=== PATIENT | male | born 1980 | race Caucasian/White ===

== ENCOUNTER 2017-06-25 09:42 | Inpatient (IN) | payer BC ==
[2017-06-25 10:22] LABS: Basophils % (Auto) 0.6 % (0.0-1.8); Eosinophils % (Auto) 1.3 % (0.0-4.3); Hematocrit 41.3 % (35.5-45.6); Hemoglobin 13.7 gm/dl (11.8-15.2); Mean Corpuscular HGB Conc 33 % (32-34); Mean Corpuscular Hemoglobin 29 pg (28-32); Mean Corpuscular Volume 87 fl (84-94); Platelet Count 235 K/mm3 (140-440); Red Blood Count 4.77 M/mm3 (3.65-5.03); Red Cell Distribution Width 14.1 % (13.2-15.2)
[2017-06-25 10:32] LABS: INR 0.85 (0.87-1.13)
[2017-06-25 10:33] LABS: Partial Thromboplastin Time 26.5 Sec. (24.2-36.6)
[2017-06-25 10:43] LABS: Albumin 3.1 g/dL (3.9-5); Albumin/Globulin Ratio 0.8 %; Bilirubin,Total 0.2 mg/dL (0.1-1.2); Chloride 100.7 mmol/L (98-107); Potassium 3.6 mmol/L (3.6-5.0); Total Protein 6.8 g/dL (6.3-8.2)
--- NOTE | 2017-06-25 10:46 | XRay Report ---
ROUTINE CHEST, TWO VIEWS: HISTORY: chest pain. The trachea, heart, mediastinal contour, lung fuentes and bony thorax are unremarkable. IMPRESSION: Unremarkable chest x-ray.
[2017-06-25] MEDS ORDERED: NORMODYNE IV ONE (11:48)
[2017-06-25] MEDS ORDERED: APRESOLINE IV ONE (12:39)
[2017-06-25 12:51] LABS: Bilirubin,Urine NEG (Negative); Blood,Urine SM (Negative); Ketones,Urine NEG (Negative); Leukocyte Esterase,Urine NEG (Negative); Nitrite,Urine NEG (Negative); Urobilinogen,Urine < 2.0 mg/dL (<2.0)
[2017-06-25 12:56] LABS: Protein,Urine >500 mg/dL (Negative)
[2017-06-25] MEDS ORDERED: TRIDIL DRIP 50MG/250ML 50 MG/250 ML BOTTLE IV ONE (15:01)
[2017-06-25] MEDS ORDERED: NORCO 7.5/325 PO ONE (15:01)
--- NOTE | 2017-06-25 15:07 | Emergency Department Report ---
HPI - General Chief Complaint: High BP Time Seen by Provider: 06/25/17 11:48 - HPI HPI: The patient is a 37-year-old male with a history of uncontrolled hypertension and chronic kidney disease, who presents for evaluation of dyspnea. The patient reports 1 week of progressed dyspnea on exertion from baseline, severe when present, improved with rest, worsened with lying flat. He says that he has been noncompliant with antihypertensive medication regimen for some time. He denies history of cardiac disease, but has never been evaluated by cardiology. The patient denies fever, cough, chest pain, syncope, hemoptysis, unilateral leg swelling, recent immobilization, history of DVT or PE, hx cancer. ED Past Medical Hx - Past Medical History Hx Hypertension: Yes - Surgical History Past Surgical History?: No - Social History Smoking Status: Never Smoker Substance Use Type: Marijuana ED Review of Systems ROS: Stated complaint: LIGHTHEADED HYPERTENTION Other details as noted in HPI Constitutional: denies: fever ENT: denies: throat or neck pain Respiratory: denies: cough reports shortness of breath Cardiovascular: denies: chest pain Endocrine: denies unexplained weight loss or gain Gastrointestinal: denies: abdominal pain, nausea Genitourinary: denies: dysuria Musculoskeletal: denies: leg swelling Skin: denies: rash Neurological: denies: headache Hematological/Lymphatic: denies: easy bleeding or easy bruising Psych: denies sadness or hopelessness Physical Exam - Physical Exam Vital Signs: Vital Signs 06/25/17 06/25/17 06/25/17 09:53 12:00 12:12 Temperature 98.4 F Pulse Rate 95 H 90 Respiratory 18 16 16 Rate Blood Pressure 205/157 Blood Pressure 200/147 [Left] O2 Sat by Pulse 99 99 Oximetry 06/25/17 06/25/17 06/25/17 12:15 12:19 13:00 Temperature Pulse Rate 90 Respiratory Rate Blood Pressure 200/117 Blood Pressure 185/130 196/123 [Left] O2 Sat by Pulse Oximetry 06/25/17 06/25/17 06/25/17 13:07 13:33 14:22 Temperature Pulse Rate 78 74 94 H Respiratory 16 16 Rate Blood Pressure 198/139 Blood Pressure 176/116 188/127 [Left] O2 Sat by Pulse 99 97 Oximetry 06/25/17 14:45 Temperature Pulse Rate 82 Respiratory 16 Rate Blood Pressure Blood Pressure 188/119 [Left] O2 Sat by Pulse 99 Oximetry Physical Exam: General: well-nourished, well-developed, no acute distress Head: Normocephalic, atraumatic Eyes: normal sclera ENT: Mucous membranes are pink and moist Neck: trachea midline, neck supple, No neck stiffness, no cervical adenopathy Respiratory: Breath sounds equal bilaterally, no wheezing, rales, or rhonchi Cardio: S1 and S2 present, no murmurs, rubs, gallops, capillary refill is brisk Abdomen: Normoactive bowel sounds, soft abdomen, no rigidity, no guarding or rebound tenderness Musc: 1+ pitting edema of bilateral lower legs Skin: No rash Neuro: no facial drooping, normal speech Psych: Normal affect ED Course Vital Signs 06/25/17 06/25/17 06/25/17 09:53 12:00 12:12 Temperature 98.4 F Pulse Rate 95 H 90 Respiratory 18 16 16 Rate Blood Pressure 205/157 Blood Pressure 200/147 [Left] O2 Sat by Pulse 99 99 Oximetry 06/25/17 06/25/17 06/25/17 12:15 12:19 13:00 Temperature Pulse Rate 90 Respiratory Rate Blood Pressure 200/117 Blood Pressure 185/130 196/123 [Left] O2 Sat by Pulse Oximetry 06/25/17 06/25/17 06/25/17 13:07 13:33 14:22 Temperature Pulse Rate 78 74 94 H Respiratory 16 16 Rate Blood Pressure 198/139 Blood Pressure 176/116 188/127 [Left] O2 Sat by Pulse 99 97 Oximetry 06/25/17 14:45 Temperature Pulse Rate 82 Respiratory 16 Rate Blood Pressure Blood Pressure 188/119 [Left] O2 Sat by Pulse 99 Oximetry ED Medical Decision Making - Lab Data Result diagrams: 06/25/17 10:04 06/25/17 10:04 - Medical Decision Making The patient was seen and examined by myself. The patient is placed on a triage rn and continuous pulse ox. On initial evaluation, the patient was found to be in no distress. Evaluation orders were placed. The patient is given multiple doses of antihypertensives. Lab results revealed significantly elevated beta natruretic peptide of 3000, and elevated creatinine of 3, suggestive of undiagnosed congestive heart failure and acute on chronic kidney failure. The patient remains with severely elevated blood pressure despite multiple doses of IV antihypertensives. As the patient's blood pressure remains emergently elevated, DBP currently 130, the patient started on a nitroglycerin drip and he will be admitted to the critical-care unit. The on- call hospitalist service was contacted. Dr. Horta agreed to admit the patient for further treatment and close monitoring. The ED admit order was placed. The patient was admitted in guarded condition. Critical care attestation.: If time is entered above; I have spent that time in minutes in the direct care of this critically ill patient, excluding procedure time. ED Disposition Clinical Impression: Hypertensive emergency, Heart failure, acute systolic, Acute non intractable tension-type headache Renal failure (ARF), acute on chronic Qualifiers: Acute renal failure type: unspecified Chronic kidney disease stage: stage 2 ( mild) Qualified Code(s): N17.9 - Acute kidney failure, unspecified Disposition: OP ADMIT IP TO THIS HOSP Is pt being admited?: Yes Does the pt Need Aspirin: Yes Condition: Serious Instructions: Hypertension (ED) Referrals: PRIMARY CARE, [Primary Care Provider] - 3-5 Days Time of Disposition: 15:08
[2017-06-25] MEDS ORDERED: BABY ASPIRIN PO ONE (15:09)
[2017-06-25] MEDS: PERCOCET 5/325 PO PRN (21:40)
--- NOTE | 2017-06-25 22:13 | Consultation ---
History of Present Illness Consult date: 06/25/17 Requesting physician: ERIC CALDERON Reason for consult: other (Hypertensive Urgency) History of present illness: PULMONARY/CCM CONSULT NOTE (Full dictation # [id number]) Please see dictated notes for full details Medications and Allergies Allergies Allergy/AdvReac Type Severity Reaction Status Date / Time No Known Allergies Allergy Unverified 06/25/17 09:53 Home Medications Medication Instructions Recorded Confirmed Last Taken Type No Known Home Medications [No 06/25/17 06/25/17 Unknown History Reported Home Medications] Active Meds: Active Medications Nitroglycerin/Dextrose (Tridil Drip 50mg/250ml) 50 mg in 250 mls @ 3 mls/hr IV TITR ONE; 10 MCG/MIN PRN Reason: Protocol Stop: 06/29/17 02:20 Last Titration: 06/25/17 18:37 Dose: 70 mcg/min, 21 mls/hr Oxycodone/Acetaminophen (Percocet 5/325) 1 tab PO Q4H PRN PRN Reason: Pain, Moderate (4-6) Last Admin: 06/25/17 21:40 Dose: 1 tab Physical Examination Vital signs: Vital Signs Temp Pulse Resp BP Pulse Ox 98.4 F 95 H 18 205/157 99 06/25/17 09:53 06/25/17 09:53 06/25/17 09:53 06/25/17 09:53 06/25/17 09:53 Results - Laboratory Findings CBC and BMP: 06/25/17 10:04 06/25/17 10:04 PT/INR, D-dimer PT 12.0 Sec. (12.2-14.9) L 06/25/17 10:04 INR 0.85 (0.87-1.13) L 06/25/17 10:04 Abnormal lab findings: Abnormal Labs 06/25/17 06/25/17 06/25/17 10:04 10:04 10:04 Seg Neutrophils % 76.0 H PT 12.0 L INR 0.85 L Creatinine 3.4 H Glucose 101 H NT-Pro-B Natriuret Pep Albumin 3.1 L 06/25/17 10:04 Seg Neutrophils % PT INR Creatinine Glucose NT-Pro-B Natriuret Pep 3028 H Albumin
[2017-06-25] MEDS ORDERED: CARDENE 50 MG in NACL 0.9% 250ML 230 ML IV SCH (23:00)
[2017-06-25] MEDS: COREG PO SCH (23:00)
[2017-06-25] MEDS: NORVASC PO SCH (23:00)
--- NOTE | 2017-06-25 23:50 | Consultation ---
PULMONARY CRITICAL CARE CONSULT NOTE CONSULTING PHYSICIAN: Dr. Horta. REASON FOR CONSULTATION: Hypertensive urgency, need for IV nitro drip. CHIEF COMPLAINT AND HISTORY OF PRESENT ILLNESS: As follows. The patient is a 37-year-old -[place] male with past medical history according to him significant for high blood pressure, but also a cardiomyopathy. He states he has been on Lasix at home. He has been on Coreg at home, but he denies any history of coronary artery disease. He ran out of his medications recently, he came into the ER complaining of uncontrolled hypertension and dyspnea on exertion. He described a week of increasing dyspnea on exertion, but denied any significant orthopnea. He denied any cough or expectoration. He denied any chest pains or palpitations. He denied any nausea and vomiting. He apparently had told the Emergency Room earlier that he was having orthopnea, but denies that to me. He was seen in the ER and given multiple rounds of labetalol, IV hydralazine, and ultimately started on a nitro drip. When I stopped by to see him, he was lying in bed, the head of his bed was up even though he denied orthopnea. He did complain mostly of a pounding headache that he had gotten since he was started on nitro drip. He denied any new onset leg pain or swelling either unilaterally or bilaterally, any hemoptysis, any palpitations. Denied any suggestion of any venous thromboembolic phenomenon/DVT. He denies any history of tobacco use or abuse. This really is as much of the history of presentation as I have. I should mention no vomiting at home. He did have one episode of vomiting after he received ____ headache. PAST MEDICAL HISTORY: Hypertension, cardiomyopathy, chronic kidney disease. PAST SURGICAL HISTORY: Denies. MEDICATIONS: He was on at the time I stopped by to see him were revealed, he was on a nitro drip at 70 mcg per minute and Percocet 1 tab p.o. q. 4 hours p.r.n. moderate pain. ALLERGIES: No known drug allergies. DIET: Well-built gentleman. Denies acute weight loss or gain in the preceding few weeks to months. FAMILY AND SOCIAL HISTORY: Lives in the community. Denies alcohol or tobacco. He does use smoke marijuana intermittently, he tells me there is a family history of hypertension. REVIEW OF SYSTEMS: A complete 13 system review of systems obtained. Pertinent positives and/or negatives as in body of the history above, otherwise noncontributory. Denies any new onset seizures. He denies any new onset focal weakness. PHYSICAL EXAMINATION: VITAL SIGNS: At presentation in the Emergency Room, review of the vital signs. He was afebrile, temperature 98.4 Fahrenheit with a pulse of 95, respiratory rate of 18, blood pressure 205/157, oxygen sats were 99%, inspired oxygen concentration was not recorded. GENERAL: He is a well-built, -[place] male, lying in the bed, head of the bed up normocephalic, atraumatic. Mildly anxious without significant increased work of breathing. HEAD, EYES, EARS, NOSE, AND THROAT: He is anicteric. No conjunctival erythema. Oropharynx is a Mallampati #3. Oropharynx is moist. No gross jugular venous distention, no thyromegaly, grossly no palpable lymph nodes in the supraclavicular or submandibular lymph node chains. LUNGS: Auscultation of both lung fuentes unremarkable. Lungs are clear bilaterally. HEART: Heart sounds 1 and 2 are heard, regular rate and rhythm at time of my evaluation. No rubs, no murmurs. ABDOMEN: Soft, full, bowel sounds are positive, nontender. No hepatosplenomegaly is palpable. No CVA tenderness. EXTREMITIES: Without overt digital clubbing, cyanosis, or pedal edema. Dorsalis pedal pulses are palpable bilaterally. NEUROLOGIC: Pupils are equal, round, about 3 mm, reactive to light. Extraocular muscle movements are intact. He moves all 4 extremities spontaneously. SKIN: The skin is of normal turgor. No cellulitis, no rash. LABORATORY DATA: From my review are as follows: White cell count 9000, hemoglobin 13.7, hematocrit 41.3, platelet count 235. INR 0.85. Serum sodium 141, potassium 3.6, chloride 101, bicarbonate 22, BUN 18, creatinine ____, glucose 101. BNP was elevated at 3028. Troponin within normal limits. Liver function test within normal limits. Urinalysis was unremarkable. No microbiology studies. Chest x-ray was reviewed. I have reviewed the films and in my opinion it is a normal chest x-ray, no significant cardiomegaly and the radiologist agrees with that interpretation. It is a 2-view chest x-ray. ASSESSMENT: 1. Uncontrolled hypertension with hypertensive urgency. 2. Medication noncompliance. 3. Vomiting, unrelated to the dyspnea on exertion. 4. Chronic kidney disease. 5. History of cardiomyopathy. PLAN: Resume home medications. He remembers being on amlodipine as well as being on Coreg at home as well as being on Lasix at home. I will go ahead and start him on Coreg 12.5 mg p.o. b.i.d. I will begin amlodipine 10 mg p.o. daily. I will hold on diuresis. Nephrology consultation will be in order and Cardiology evaluation should be considered depending on his progress during the hospital. I have reviewed the 12-lead EKG and is really is unremarkable EKG, some nonspecific ST-T wave changes in the setting of normal cardiac enzymes. I will switch him over to a Cardene drip here in the absence of known coronary artery disease and see if we can get his headache doing better and get better control of the blood pressures. Also, I will schedule IV hydralazine with hold parameters. He will be placed on DVT prophylaxis. Flu and pneumonia vaccination will be per protocol. Medication compliance has been counseled. Thank you very much for the consult. Hopefully, we can break the hypertensive urgency and he might not need ICU admission. Otherwise, we will be glad to admit him to the Intensive Care Unit. JOB# [id number] MEHDI/ASHLEY
--- NOTE | 2017-06-25 23:56 | History and Physical Report ---
History of Present Illness Date of examination: 06/25/17 Date of admission: 06/25/17 17:39 Chief complaint: CC SOB on exertion High BP History of present illness: See dictated H/p in reports HTN emergency Acute Diastolic Heart failure CKD Noncompliance Medications and Allergies Allergies Allergy/AdvReac Type Severity Reaction Status Date / Time No Known Allergies Allergy Unverified 06/25/17 09:53 Home Medications Medication Instructions Recorded Confirmed Last Taken Type No Known Home Medications [No 06/25/17 06/25/17 Unknown History Reported Home Medications] Active Meds: Active Medications Amlodipine Besylate (Norvasc) 10 mg PO QDAY [facility] Last Admin: 06/25/17 23:00 Dose: 10 mg Carvedilol (Coreg) 12.5 mg PO BID [facility] Last Admin: 06/25/17 23:00 Dose: Not Given Enoxaparin Sodium (Lovenox) 30 mg SUB-Q QDAY AMISHA Hydralazine HCl (Apresoline) 10 mg IV Q6H AMISHA Stop: 06/27/17 00:00 Nitroglycerin/Dextrose (Tridil Drip 50mg/250ml) 50 mg in 250 mls @ 3 mls/hr IV TITR ONE; 10 MCG/MIN PRN Reason: Protocol Stop: 06/29/17 02:20 Last Titration: 06/25/17 23:00 Dose: 0 mcg/min, 0 mls/hr Nicardipine HCl 50 mg/ Sodium (Chloride) 250 mls @ 25 mls/hr IV TITR AMISHA; 5 MG/ HR PRN Reason: Protocol Last Titration: 06/25/17 23:32 Dose: 0 mg/hr, 0 mls/hr Oxycodone/Acetaminophen (Percocet 5/325) 1 tab PO Q4H PRN PRN Reason: Pain, Moderate (4-6) Last Admin: 06/25/17 21:40 Dose: 1 tab Exam - Constitutional Vitals: Temp Pulse Resp BP Pulse Ox 98.6 F 88 23 151/99 94 06/25/17 20:00 06/25/17 23:00 06/25/17 23:00 06/25/17 23:00 06/25/17 23:00 Results - Labs CBC & Chem 7: 06/25/17 10:04 06/25/17 10:04 Labs: Laboratory Last Values WBC 9.0 K/mm3 (4.5-11.0) 06/25/17 10:04 RBC 4.77 M/mm3 (3.65-5.03) 06/25/17 10:04 Hgb 13.7 gm/dl (11.8-15.2) 06/25/17 10:04 Hct 41.3 % (35.5-45.6) 06/25/17 10:04 MCV 87 fl (84-94) 06/25/17 10:04 MCH 29 pg (28-32) 06/25/17 10:04 MCHC 33 % (32-34) 06/25/17 10:04 RDW 14.1 % (13.2-15.2) 06/25/17 10:04 Plt Count 235 K/mm3 (140-440) 06/25/17 10:04 Lymph % (Auto) 16.3 % (13.4-35.0) 06/25/17 10:04 [place] % (Auto) 5.8 % (0.0-7.3) 06/25/17 10:04 Eos % (Auto) 1.3 % (0.0-4.3) 06/25/17 10:04 Baso % (Auto) 0.6 % (0.0-1.8) 06/25/17 10:04 Lymph # 1.5 K/mm3 (1.2-5.4) 06/25/17 10:04 [place] # 0.5 K/mm3 (0.0-0.8) 06/25/17 10:04 Eos # 0.1 K/mm3 (0.0-0.4) 06/25/17 10:04 Baso # 0.1 K/mm3 (0.0-0.1) 06/25/17 10:04 Seg Neutrophils % 76.0 % (40.0-70.0) H 06/25/17 10:04 Seg Neutrophils # 6.8 K/mm3 (1.8-7.7) 06/25/17 10:04 PT 12.0 Sec. (12.2-14.9) L 06/25/17 10:04 INR 0.85 (0.87-1.13) L 06/25/17 10:04 APTT 26.5 Sec. (24.2-36.6) 06/25/17 10:04 Sodium 141 mmol/L (137-145) 06/25/17 10:04 Potassium 3.6 mmol/L (3.6-5.0) 06/25/17 10:04 Chloride 100.7 mmol/L (98-107) 06/25/17 10:04 Carbon Dioxide 22 mmol/L (22-30) 06/25/17 10:04 Anion Gap 22 mmol/L 06/25/17 10:04 BUN 18 mg/dL (9-20) 06/25/17 10:04 Creatinine 3.4 mg/dL (0.8-1.5) H 06/25/17 10:04 Estimated GFR 20 ml/min 06/25/17 10:04 BUN/Creatinine Ratio 5 % 06/25/17 10:04 Glucose 101 mg/dL (75-100) H 06/25/17 10:04 Calcium 9.0 mg/dL (8.4-10.2) 06/25/17 10:04 Total Bilirubin 0.20 mg/dL (0.1-1.2) 06/25/17 10:04 AST 21 units/L (5-40) 06/25/17 10:04 ALT 19 units/L (7-56) 06/25/17 10:04 Alkaline Phosphatase 123 units/L (35-129) 06/25/17 10:04 Troponin T 0.029 ng/mL (0.00-0.029) 06/25/17 10:04 NT-Pro-B Natriuret Pep 3028 pg/mL (0-450) H 06/25/17 10:04 Total Protein 6.8 g/dL (6.3-8.2) 06/25/17 10:04 Albumin 3.1 g/dL (3.9-5) L 06/25/17 10:04 Albumin/Globulin Ratio 0.8 % 06/25/17 10:04 Urine Color Yellow (Yellow) 06/25/17 12:37 Urine Turbidity Clear (Clear) 06/25/17 12:37 Urine pH 5.0 (5.0-7.0) 06/25/17 12:37 Ur Specific [place] 1.013 (1.003-1.030) 06/25/17 12:37 Urine Protein >500 mg/dL (Negative) 06/25/17 12:37 Urine Glucose (UA) Neg mg/dL (Negative) 06/25/17 12:37 Urine Ketones Neg mg/dL (Negative) 06/25/17 12:37 Urine Blood Sm (Negative) 06/25/17 12:37 Urine Nitrite Neg (Negative) 06/25/17 12:37 Urine Bilirubin Neg (Negative) 06/25/17 12:37 Urine Urobilinogen < 2.0 mg/dL (<2.0) 06/25/17 12:37 Ur Leukocyte Esterase Neg (Negative) 06/25/17 12:37 Urine WBC (Auto) 1.0 /HPF (0.0-6.0) 06/25/17 12:37 Urine RBC (Auto) 1.0 /HPF (0.0-6.0) 06/25/17 12:37 U Epithel Cells (Auto) < 1.0 /HPF (0-13.0) 06/25/17 12:37
[2017-06-26] MEDS: APRESOLINE IV SCH ×5 (00:21→18:32)
[2017-06-26] MEDS ORDERED: AMBIEN PO PRN (02:12)
[2017-06-26] MEDS ORDERED: ZOFRAN IV PRN (02:12)
[2017-06-26] MEDS ORDERED: DULCOLAX PR PRN (02:12)
[2017-06-26] MEDS ORDERED: MILK OF MAGNESIA PO PRN (02:12)
[2017-06-26] MEDS: PERCOCET 5/325 PO PRN (06:00)
[2017-06-26] MEDS: TYLENOL PO PRN ×2 (07:55→20:05)
--- NOTE | 2017-06-26 08:30 | History and Physical Report ---
CHIEF COMPLAINT: Shortness of breath for 1 week. HISTORY OF PRESENT ILLNESS: A 37-year-old male with a history of hypertension, very noncompliant with medications and not taking his medications for the past 1 month comes in for increasing shortness of breath of 1-week duration. Exertional dyspnea present. Also shortness of breath on lying flat. The patient states he has chronic kidney disease also, but not following with any physician. No PCP. No diaphoresis, no palpitations. Exercise precipitates symptoms. Also apparently his blood pressure has been high at home. In the ER, his blood pressure was very high. PAST MEDICAL HISTORY: Hypertension and chronic kidney disease. SURGICAL HISTORY: None. SOCIAL HISTORY: Does not smoke now, marijuana occasionally. FAMILY HISTORY: Hypertension. REVIEW OF SYSTEMS: Significant for being lightheaded and exertional dyspnea present. Orthopnea present. Otherwise, a 14-point review of systems is otherwise negative. All 14 review of systems done. PHYSICAL EXAMINATION: GENERAL: Young male, cooperative during the examination. VITAL SIGNS: Initial blood pressure was 205/157, temperature was 98.4, pulse was 95, respirations 18. HEENT: Unremarkable. Pupils are equal and reactive. NECK: Supple, no lymphadenopathy, no thyromegaly. LUNGS: Clear to auscultation and percussion. Good air entry. CARDIOVASCULAR: S1-S2 heard. No gallop, no murmur, no rub. Apical impulse in left fifth intercostal space and midclavicular line. ABDOMEN: Soft and benign. No hepatosplenomegaly. No guarding, no rigidity. Hernial orifices are normal. EXTREMITIES: Good pedal pulses. No pedal edema. CENTRAL NERVOUS SYSTEM: Alert and oriented x 4. Nonfocal exam. SKIN: Normal. DIAGNOSTIC DATA: EKG shows LVH criteria, heart rate of 88 per minute. LABORATORY DATA: Significant for BUN and creatinine of 18 and 3.4, potassium is 3.6, hemoglobin is 13.7. BNP was 3000. Chest x-ray: Mild pulmonary vascular congestion. EMERGENCY DEPARTMENT COURSE: The patient was given IV hydralazine and labetalol. In spite of that, her blood pressure was not coming down, hence was started on nitro drip. ASSESSMENT AND PLAN: 1. Hypertensive emergency. The patient on nitro drip. The patient was started on losartan 100 mg daily and also amlodipine 10 mg once a day and carvedilol 12.5 b.i.d. We will stop the losartan and put him on hydralazine because of the worsening kidney function 2. Acute congestive heart failure exacerbation, diastolic failure secondary to hypertension, IV Lasix 40 mg q. 24. We will get an echocardiogram. 3. Chronic kidney disease. Creatinine is 3.4. We will get a Nephrology consult. 4. Noncompliance. The patient counseled about compliance and affect on kidneys. 5. Deep venous thrombosis prophylaxis, Lovenox 30 mg subcutaneously daily. JOB# [id number] JASMYNE/NTS
--- NOTE | 2017-06-26 09:57 | Consultation ---
History of Present Illness - Reason for Consult Consult date: 06/26/17 chronic renal failure, accelerated hypertension - History of Present Illness The patient is a 37-year-old AAM with history significant for Uncontrolled hypertension and CKD stage 4, who presented for evaluation of difficulty in breathing. Patient was out of his meds for about 3 weeks, he didn't have time to go to pharmacy. Patient reports 1 week of progressive dyspnea on exertion, associated with orthopnea. He also reports having severe ISAACS for which he took Aleve. His initial BP was around 200/150s treated with IV Nicardipine drip. Last year his pcp told that he have stage 4 CKD. Creatinine was 3.4 on admission. Currently he is not followed by any Physician. he had few episodes of N & V in the hospital. Overall he is feeling better. The patient denies abd pain, diarrhea, dizziness, fever, cough, CP, syncope, kidney stone or leg swelling. Past History Past Medical History: hypertension, renal failure Medications and Allergies Allergies Allergy/AdvReac Type Severity Reaction Status Date / Time No Known Allergies Allergy Unverified 06/25/17 09:53 Home Medications Medication Instructions Recorded Confirmed Last Taken Type No Known Home Medications [No 06/25/17 06/25/17 Unknown History Reported Home Medications] Active Meds: Active Medications Acetaminophen (Tylenol) 650 mg PO Q4H PRN PRN Reason: Pain MILD(1-3)/Fever >100.5/ISAACS Last Admin: 06/26/17 07:55 Dose: 650 mg Amlodipine Besylate (Norvasc) 10 mg PO QDAY [facility] Last Admin: 06/25/17 23:00 Dose: 10 mg Bisacodyl (Dulcolax) 10 mg FL QDAY PRN PRN Reason: Constipation unrelieved by MOM Carvedilol (Coreg) 12.5 mg PO BID [facility] Last Admin: 06/26/17 00:00 Dose: 12.5 mg Enoxaparin Sodium (Lovenox) 30 mg SUB-Q QDAY AMISHA Famotidine (Pepcid) 20 mg PO QAM [facility] Furosemide (Lasix) 40 mg IV QDAY [facility] Hydralazine HCl (Apresoline) 10 mg IV Q6H [facility] Stop: 06/27/17 00:00 Last Admin: 06/26/17 06:02 Dose: 10 mg Hydralazine HCl (Apresoline) 50 mg PO Q8HR AMISHA Nicardipine HCl 50 mg/ Sodium (Chloride) 250 mls @ 25 mls/hr IV TITR AMISHA; 5 MG/ HR PRN Reason: Protocol Last Titration: 06/25/17 23:32 Dose: 0 mg/hr, 0 mls/hr Influenza Virus Vaccine Quadrival (Fluarix Quad [id number](36 Mos+) 0.5 ml IM .ONCE ONE Stop: 06/26/17 12:01 Losartan Potassium (Cozaar) 100 mg PO QDAY AMISHA Magnesium Hydroxide (Milk Of Magnesia) 30 ml PO Q4H PRN PRN Reason: Constipation Ondansetron HCl (Zofran) 4 mg IV Q8H PRN PRN Reason: N/V unrelieved by Reglan Oxycodone/Acetaminophen (Percocet 5/325) 1 tab PO Q4H PRN PRN Reason: Pain, Moderate (4-6) Last Admin: 06/26/17 06:00 Dose: 1 tab Potassium Chloride (K-Dur) 10 meq PO QDAY [facility] Zolpidem Tartrate (Ambien) 5 mg PO QHS PRN PRN Reason: Insomnia Review of Systems Constitutional: no weight loss, no weight gain, no fever, no chills, no anorexia , no weakness, no poor appetite, no chronic pain Ears, nose, mouth and throat: no epistaxis Cardiovascular: orthopnea, shortness of breath, dyspnea on exertion, high blood pressure, no chest pain, no palpitations, no rapid/irregular heart beat, no edema, no syncope, no lightheadedness, no leg edema Respiratory: shortness of breath, dyspnea on exertion, no cough, no hemoptysis, no home oxygen Gastrointestinal: nausea, vomiting, no abdominal pain, no diarrhea, no hematemesis, no melena, no hematochezia, no jaundice Genitourinary Male: no dysuria, no hematuria, no urinary retention, no kidney stones Rectal: no bleeding Musculoskeletal: no redness of joints, no hot joints, no morning stiffness Integumentary: no rash, no pruritis, no jaundice Neurological: headaches, no paralysis, no weakness, no seizures, no syncope, no ataxia, no aphasia, no change in speech, no change in mentation, no confusion, no memory loss, no double vision, no loss of vision, no paralysis Psychiatric: no memory loss Endocrine: no weight change Hematologic/Lymphatic: no easy bleeding Exam - Vital Signs Vital signs: Vital Signs Temp Pulse Resp BP Pulse Ox 98.4 F 95 H 18 205/157 99 06/25/17 09:53 06/25/17 09:53 06/25/17 09:53 06/25/17 09:53 06/25/17 09:53 - General Appearance General appearance: well-developed, well-nourished, appears stated age, other ( no distress) EENT: ATNC, PERRL, mucous membranes moist, hearing intact, vision intact Neck: Present: neck supple, trachea midline Respiratory: Clear to Ascultation Heart: regular, S1S2, no murmurs Gastrointestinal: Present: normoactive bowel sounds. Absent: tenderness, distended Integumentary: no rash, warm and dry Neurologic: no focal deficit, no asterixis, alert and oriented x3, CN 3-12 intact Musculoskeletal: Present: other (no edema) Psychiatric: mood/affect appropriate, cooperative Results - Lab Results 06/25/17 10:04 06/25/17 10:04 Most recent lab results Calcium 9.0 mg/dL (8.4-10.2) 06/25/17 10:04 - Image Kidney/bladder ultrasound: pending Assessment and Plan 1. Renal Insufficiency: CKD stage 4 in the setting of long standing poorly controlled HTN. Monitor renal function. Renal US. 2. Hypertensive Urgency: Was on Nicardipine drip. Resume home meds and adjust the dose if needed. Follow BP. 3. Proteinuria: Patient is on Losartan. Urine protein quantification. 4. Medical non-compliance: Compliance encouraged.
--- NOTE | 2017-06-26 10:31 | Ultrasound Report ---
ULTRASOUND RENAL BILATERAL HISTORY: Acute renal failure. TECHNIQUE: transabdominal ultrasound with color Doppler interrogation. FINDINGS: The right kidney measures 10.1 x 4.4 x 4.5cm. Right renal cortex: 1.2cm. The left kidney measures 10.1 x 4.7 x 4.7cm. Left renal cortex: 1.5cm. The kidneys are normal size, contour and position. There is increased renal parenchymal echotexture bilaterally. Corticomedullary differentiation is preserved. No evidence for cystic disease, mass, hydronephrosis or perinephric fluid. The views of the bladder and the region of the ureters appear normal. IMPRESSION: Echogenic kidneys consistent with nonspecific renal parenchymal disease.
[2017-06-26] MEDS: COZAAR PO SCH (11:00)
[2017-06-26] MEDS: COREG PO SCH ×3 (11:00→21:31)
[2017-06-26] MEDS: NORVASC PO SCH (11:00)
[2017-06-26] MEDS: PEPCID PO SCH (11:00)
[2017-06-26] MEDS: LASIX IV SCH (11:00)
[2017-06-26] MEDS: LOVENOX SUB-Q SCH (11:00)
[2017-06-26] MEDS: APRESOLINE PO SCH ×3 (11:00→21:32)
[2017-06-26 11:25] LABS: Calcium 8.9 mg/dL (8.4-10.2); Chloride 99.1 mmol/L (98-107); Potassium 3.6 mmol/L (3.6-5.0)
[2017-06-26] MEDS: K-DUR PO SCH (11:51)
[2017-06-26] MEDS ORDERED: Fluarix Quad 2017-2018(36 MOS+ IM ONE (12:00)
--- NOTE | 2017-06-26 14:30 | Progress Note ---
Assessment and Plan - Acute heart failure: Likely diastolic. CXR showed no congestion. Pro BNP was elevated though could be amplified by his renal failure - Renal Insufficiency: CKD stage 4 in the setting of long standing poorly controlled HTN. Monitor renal function. Renal US. - Hypertensive Urgency: Was on Nicardipine drip. Resume home meds and adjust the dose if needed. Follow BP. - Proteinuria: Patient is on Losartan. Urine protein quantification. - Medical non-compliance: Compliance encouraged. - DVT Prophylaxis with lovenox and GI with pepcid Spend 32 min minure of crititcal care time in direct pt care, review of laboratory and radiological data Subjective Date of service: 06/26/17 Principal diagnosis: Acute diastolic herat faiure with hypertnsive emergency, Acute renal faiure Interval history: No chest pain or shortness of breath Objective - Constitutional Vitals: Vital Signs - 12hr 06/26/17 06/26/17 06/26/17 02:30 03:00 03:30 Temperature Pulse Rate 99 H 101 H 90 Respiratory 26 H 22 22 Rate Blood Pressure 157/96 156/89 143/78 O2 Sat by Pulse 94 93 92 Oximetry 06/26/17 06/26/17 06/26/17 04:00 04:30 05:00 Temperature 98.5 F Pulse Rate 87 88 81 Respiratory 22 21 20 Rate Blood Pressure 153/84 147/91 160/94 O2 Sat by Pulse 93 93 93 Oximetry 06/26/17 06/26/17 06/26/17 05:30 06:00 06:02 Temperature Pulse Rate 81 Respiratory 23 Rate Blood Pressure 168/105 169/106 168/107 O2 Sat by Pulse 96 94 Oximetry 06/26/17 06/26/17 06/26/17 06:30 07:00 07:30 Temperature Pulse Rate Respiratory Rate Blood Pressure 155/89 168/98 160/104 O2 Sat by Pulse 94 93 94 Oximetry 06/26/17 06/26/17 06/26/17 08:00 08:30 09:00 Temperature 98.6 F Pulse Rate 91 H 93 H 90 Respiratory 21 18 22 Rate Blood Pressure 171/101 161/94 184/113 O2 Sat by Pulse 93 94 96 Oximetry 06/26/17 06/26/17 06/26/17 09:30 10:01 10:30 Temperature Pulse Rate 90 91 H 90 Respiratory 22 26 H 24 Rate Blood Pressure 180/105 131/72 167/86 O2 Sat by Pulse 96 91 96 Oximetry 06/26/17 06/26/17 06/26/17 11:00 11:30 12:00 Temperature 98.9 F Pulse Rate 91 H 88 89 Respiratory 18 25 H 15 Rate Blood Pressure 180/106 178/106 169/105 O2 Sat by Pulse 95 92 96 Oximetry 06/26/17 06/26/17 12:30 13:00 Temperature Pulse Rate 88 92 H Respiratory 16 24 Rate Blood Pressure 183/100 145/85 O2 Sat by Pulse 96 94 Oximetry General appearance: Present: no acute distress, well-nourished - EENT Eyes: PERRL, EOM intact - Neck Neck: supple, normal ROM - Respiratory Respiratory effort: normal Respiratory: bilateral: CTA - Cardiovascular Rhythm: regular Heart Sounds: Present: S1 & S2. Absent: gallop, rub Extremities: pulses intact, No edema, normal color, Full ROM - Gastrointestinal General gastrointestinal: Present: soft, non-tender, non-distended, normal bowel sounds - Integumentary Integumentary: clear, warm, dry - Musculoskeletal Musculoskeletal: 1, strength equal bilaterally - Neurologic Neurologic: moves all extremities - Psychiatric Psychiatric: memory intact, appropriate mood/affect, intact judgment & insight - Labs CBC & Chem 7: 06/25/17 10:04 06/26/17 10:50 Labs: Abnormal lab results 06/26/17 Range/Units 10:50 Creatinine 3.3 H (0.8-1.5) mg/dL Glucose 111 H (75-100) mg/dL
--- NOTE | 2017-06-26 14:34 | Progress Note ---
Subjective Date of service: 06/26/17 Principal diagnosis: Acute diastolic heart faiure with hypertnsive emergency, FABRICIO Interval history: Patient is seen today for: Acute diastolic heart faire with hypertnsive emergency, Acute renal failure Seen and examined at bedside; 24hour events reviewed; nursing and respiratory care staff consulted; Objective Vital Signs - 12hr 06/26/17 06/26/17 06/26/17 03:00 03:30 04:00 Temperature 98.5 F Pulse Rate 101 H 90 87 Respiratory 22 22 22 Rate Blood Pressure 156/89 143/78 153/84 O2 Sat by Pulse 93 92 93 Oximetry 06/26/17 06/26/17 06/26/17 04:30 05:00 05:30 Temperature Pulse Rate 88 81 Respiratory 21 20 Rate Blood Pressure 147/91 160/94 168/105 O2 Sat by Pulse 93 93 96 Oximetry 06/26/17 06/26/17 06/26/17 06:00 06:02 06:30 Temperature Pulse Rate 81 Respiratory 23 Rate Blood Pressure 169/106 168/107 155/89 O2 Sat by Pulse 94 94 Oximetry 06/26/17 06/26/17 06/26/17 07:00 07:30 08:00 Temperature 98.6 F Pulse Rate 91 H Respiratory 21 Rate Blood Pressure 168/98 160/104 171/101 O2 Sat by Pulse 93 94 93 Oximetry 06/26/17 06/26/17 06/26/17 08:30 09:00 09:30 Temperature Pulse Rate 93 H 90 90 Respiratory 18 22 22 Rate Blood Pressure 161/94 184/113 180/105 O2 Sat by Pulse 94 96 96 Oximetry 06/26/17 06/26/17 06/26/17 10:01 10:30 11:00 Temperature Pulse Rate 91 H 90 91 H Respiratory 26 H 24 18 Rate Blood Pressure 131/72 167/86 180/106 O2 Sat by Pulse 91 96 95 Oximetry 06/26/17 06/26/17 06/26/17 11:30 12:00 12:30 Temperature 98.9 F Pulse Rate 88 89 88 Respiratory 25 H 15 16 Rate Blood Pressure 178/106 169/105 183/100 O2 Sat by Pulse 92 96 96 Oximetry 06/26/17 13:00 Temperature Pulse Rate 92 H Respiratory 24 Rate Blood Pressure 145/85 O2 Sat by Pulse 94 Oximetry CBC and BMP: 06/25/17 10:04 06/26/17 10:50 ABG, PT/INR, D-dimer: PT/INR, D-dimer PT 12.0 Sec. (12.2-14.9) L 06/25/17 10:04 INR 0.85 (0.87-1.13) L 06/25/17 10:04 Abnormal lab findings: Abnormal Labs 06/25/17 06/25/17 06/25/17 10:04 10:04 10:04 Seg Neutrophils % 76.0 H PT 12.0 L INR 0.85 L Creatinine 3.4 H Glucose 101 H NT-Pro-B Natriuret Pep Albumin 3.1 L 06/25/17 06/26/17 10:04 10:50 Seg Neutrophils % PT INR Creatinine 3.3 H Glucose 111 H NT-Pro-B Natriuret Pep 3028 H Albumin
[2017-06-27] MEDS: APRESOLINE IV SCH (00:54)
[2017-06-27] MEDS: TYLENOL PO PRN (04:44)
[2017-06-27] MEDS: APRESOLINE PO SCH ×3 (04:44→15:06)
[2017-06-27 06:35] LABS: Calcium 8.8 mg/dL (8.4-10.2); Chloride 97.9 mmol/L (98-107); Magnesium 1.8 mg/dL (1.7-2.3); Phosphorous 2.4 mg/dL (2.5-4.5); Potassium 3.6 mmol/L (3.6-5.0)
--- NOTE | 2017-06-27 08:07 | Progress Note ---
Assessment and Plan 1. Renal Insufficiency: CKD stage 4 in the setting of long standing poorly controlled HTN. Renal function is fairly stable. Follow up with me in 2 weeks. 2. Hypertensive Urgency: Was on Nicardipine drip. BP is better. 3. Proteinuria: Continue Losartan. 4. Medical non-compliance: Compliance encouraged. Subjective Date of service: 06/27/17 Principal diagnosis: Acute diastolic heart failure with hypertensive emergency, FABRICIO Interval history: Patient is feeling better. Objective - Vital Signs Vital signs: Vital Signs - 12hr 06/26/17 06/26/17 06/26/17 20:25 20:30 21:00 Temperature Pulse Rate 89 92 H Respiratory 25 H 27 H Rate Blood Pressure 162/104 172/107 151/98 Blood Pressure [Left] O2 Sat by Pulse 96 96 Oximetry 06/26/17 06/26/17 06/26/17 21:07 21:11 22:00 Temperature Pulse Rate 98 H 91 H Respiratory 23 Rate Blood Pressure 172/107 172/107 Blood Pressure [Left] O2 Sat by Pulse 96 98 Oximetry 06/27/17 06/27/17 01:02 04:36 Temperature 98.7 F 98.8 F Pulse Rate 87 90 Respiratory 18 18 Rate Blood Pressure 163/90 Blood Pressure 148/93 [Left] O2 Sat by Pulse 93 93 Oximetry - General Appearance General appearance: well-developed, well-nourished, appears stated age, other ( no distress) EENT: ATNC, PERRL, mucous membranes moist, hearing intact, vision intact Neck: supple Respiratory: Present: Clear to Ascultation Cardiology: regular, S1S2, no murmurs Gastrointestinal: normoactive bowel sounds, no tenderness, no distended Integumentary: no rash, warm and dry Neurologic: no focal deficit, no asterixis, alert and oriented x3, CN 3-12 intact Musculoskeletal: other (no edema) Psychiatric: mood/affect appropriate, cooperative - Lab 06/25/17 10:04 06/27/17 04:41 Most recent lab results Calcium 8.8 mg/dL (8.4-10.2) 06/27/17 04:41 Phosphorus 2.40 mg/dL (2.5-4.5) L 06/27/17 04:41 Magnesium 1.80 mg/dL (1.7-2.3) 06/27/17 04:41
[2017-06-27] MEDS: LOVENOX SUB-Q SCH (10:02)
[2017-06-27] MEDS: COZAAR PO SCH (10:03)
[2017-06-27] MEDS: NORVASC PO SCH (10:03)
[2017-06-27] MEDS: LASIX IV SCH (10:04)
[2017-06-27] MEDS: COREG PO SCH (10:04)
[2017-06-27] MEDS: K-DUR PO SCH (10:04)
[2017-06-27] MEDS: PEPCID PO SCH (10:12)
[2017-06-27] MEDS ORDERED: COREG PO SCH ×2 (12:16→13:30)
[2017-06-27 12:43] VITALS: BP 167/99
--- NOTE | 2017-06-27 12:56 | Discharge Summary ---
Providers - Providers Date of Admission: 06/25/17 17:39 Attending physician: DEANDRA ORTIZ MD 06/25/17 20:53 Consult to Physician [CONS] Routine Consulting Provider: LILLIAN ART Reason For Exam: icu admission Place consult to:: Dr. Art Notified:: Answering Service Phone number called:: [phone] Was contact made?: Yes If yes, spoke with:: Dr. Art Time called:: 21:48 06/26/17 08:06 Consult to Physician [CONS] Routine Consulting Provider: MARIUSZ CABRERA Reason For Exam: ckd Place consult to:: Dr Cabrera Notified:: no Phone number called:: [phone] Was contact made?: No Comment:: Dr Muse at bedside to assess pt this am-new orders noted Primary care physician: COKEMAN Hospitalization Reason for admission: SHORTNESS OF BREATH Condition: Stable Hospital course: The patient is a 37-year-old AAM with history significant for Uncontrolled hypertension and CKD stage 4, was admitted with acute heart failure with hypertensive emergency steaming from non complaince with medication for 3 weeks. He also reports having severe ISAACS for which he took Aleve. His initial BP was around 200/150s treated with IV Nicardipine drip. Last year his pcp told that he have stage 4 CKD. Creatinine was 3.4 on admission. Currently he is not followed by any Physician. he had few episodes of N & V in the hospital. Overall he is feeling better. The patient denies abd pain, diarrhea, dizziness , fever, cough, CP, syncope, kidney stone or leg swelling. Patient was intially admitted to ICU but BP improved and was downgraded to the Telemetry, he was seen by Neprhology, home meds were restarted with extensive conversation and patient was discharged. New prescriptions were given. - Acute Diastolic heart failure: - CKD stage 4 With hypertensive urgency - Hypertensive Urgency: - Proteinuria: - Non compliance with medications Disposition: DC- TO HOME OR SELFCARE Time spent for discharge: 35 MINS Core Measure Documentation - Palliative Care Palliative Care/ Comfort Measures: Not Applicable - Core Measures Any of the following diagnoses?: none - VTE Discharge Requirements Deep Vein Thrombosis/Pulmonary Embolism Present on Admission: No Exam - Physical Exam Narrative exam: General appearance: Present: no acute distress, well-nourished - EENT Eyes: PERRL, EOM intact - Neck Neck: supple, normal ROM - Respiratory Respiratory effort: normal Respiratory: bilateral: CTA - Cardiovascular Rhythm: regular Heart Sounds: Present: S1 & S2. Absent: gallop, rub Extremities: pulses intact, No edema, normal color, Full ROM - Gastrointestinal General gastrointestinal: Present: soft, non-tender, non-distended, normal bowel sounds - Integumentary Integumentary: clear, warm, dry - Musculoskeletal Musculoskeletal: 1, strength equal bilaterally - Neurologic Neurologic: moves all extremities - Psychiatric Psychiatric: memory intact, appropriate mood/affect, intact judgment & insight - Constitutional Vitals: Temp Pulse Resp BP Pulse Ox 98.7 F 80 20 167/99 98 06/27/17 12:41 06/27/17 12:41 06/27/17 12:41 06/27/17 12:41 06/27/17 12:41 Plan Activity: advance as tolerated, fall precautions Diet: low salt, renal Special Instructions: record daily BP diary, smoking cessation Follow up with: PRIMARY MD HATTIE [Primary Care Provider] - 3-5 Days [facility] [Provider Group] - 7 Days MARIUSZ CABRERA MD [Staff Physician] - 7 Days Prescriptions: amLODIPine [Norvasc] 10 mg PO QDAY #30 tablet Carvedilol [Coreg] 25 mg PO Q12HR #60 tablet Valsartan/Hydrochlorothiazide [Diovan Hct 160-25 mg] 1 tab PO QDAY #30 tablet
== END 2017-06-27 15:24 | disposition home or self-care (01) | DRG 682 ==
LOC: ED 09:42 → CC1 17:39 → 4A 06-26 20:41
PROVIDERS: ADMIT Internal Medicine; ATTEND Internal Medicine
PROC: 3E0234Z Introduction of Serum, Toxoid and Vaccine into Muscle, Percutaneous Approach (ICD-10-PCS; principal; 2017-06-26)
DX: N17.9 Acute kidney failure, unspecified (principal); I50.41 Acute combined systolic (congestive) and diastolic (congestive) heart failure; I16.1 Hypertensive emergency; I13.0 Hypertensive heart and chronic kidney disease with heart failure and stage 1 through stage 4 chronic kidney disease, or unspecified chronic kidney disease; I42.9 Cardiomyopathy, unspecified; N18.4 Chronic kidney disease, stage 4 (severe); I16.0 Hypertensive urgency; G44.201 Tension-type headache, unspecified, intractable; F12.90 Cannabis use, unspecified, uncomplicated; I25.10 Atherosclerotic heart disease of native coronary artery without angina pectoris; Z82.49 Family history of ischemic heart disease and other diseases of the circulatory system; Z91.19 Patient's noncompliance with other medical treatment and regimen; Z23 Encounter for immunization
CPT/HCPCS: 36415; 71020; 76770; 80048; 80053; 81001; 82570; 83735; 83880; 83970; 84100; 84156; 84300; 84484; 85025; 85610; 85730; 90686; 93005; 93010; 93306; 96374; 96375; J0360; J1650; J1940; J7050

== ENCOUNTER 2017-07-13 12:41 | Outpatient (CLI) | payer BC ==
[2017-07-13 13:07] LABS: Basophils % (Auto) 0.7 % (0.0-1.8); Eosinophils % (Auto) 2.6 % (0.0-4.3); Hematocrit 38.5 % (35.5-45.6); Hemoglobin 12.6 gm/dl (11.8-15.2); Mean Corpuscular HGB Conc 33 % (32-34); Mean Corpuscular Hemoglobin 29 pg (28-32); Mean Corpuscular Volume 88 fl (84-94); Platelet Count 219 K/mm3 (140-440); Red Cell Distribution Width 14.4 % (13.2-15.2); White Blood Count 8.4 K/mm3 (4.5-11.0)
[2017-07-13 13:10] LABS: Bilirubin,Urine NEG (Negative); Blood,Urine NEG (Negative); Ketones,Urine NEG (Negative); Leukocyte Esterase,Urine NEG (Negative); Nitrite,Urine NEG (Negative); Urobilinogen,Urine < 2.0 mg/dL (<2.0)
[2017-07-13 13:42] LABS: Chloride 102.2 mmol/L (98-107); Potassium 4.5 mmol/L (3.6-5.0)
== END 2017-07-13 12:42 | disposition home or self-care (01) ==
LOC: LAB 12:41
PROVIDERS: ATTEND Internal Medicine Nephrology
DX: N17.9 Acute kidney failure, unspecified (principal); I11.0 Hypertensive heart disease with heart failure; I50.9 Heart failure, unspecified
CPT/HCPCS: 36415; 80048; 81001; 83735; 85025

== ENCOUNTER 2017-09-01 03:44 | Emergency (ER) | payer BC ==
[2017-09-01] MEDS ORDERED: BRETHINE SUB-Q ONE (03:59)
[2017-09-01] MEDS ORDERED: NORMODYNE IV ONE (04:00)
[2017-09-01] MEDS ORDERED: DILAUDID IV ONE (04:06)
[2017-09-01] MEDS ORDERED: ZOFRAN IV ONE (04:06)
[2017-09-01] MEDS ORDERED: NEO-SYNEPHRINE 1 MG, NACL P/F VIAL (10 ML) 9.9 ML IJ**NOT IV ONE (04:22)
[2017-09-01] MEDS ORDERED: XYLOCAINE 1% 20 mL INFILTRATI ONE (04:35)
--- NOTE | 2017-09-01 06:16 | Emergency Department Report ---
ED Male HPI - General Chief complaint: Urogenital-Male Stated complaint: PRIAPISM Time Seen by Provider: 09/01/17 03:58 Source: patient Mode of arrival: Stretcher Limitations: No Limitations - History of Present Illness Initial comments: 37-year-old male with a past medical history of hypertension and previous priapism 2 presents to Hospital compressive priapism since 12:00 AM. Patient did not attend pain which is constant without aggravating or alleviating factors. Patient thinks that it is his blood pressure medication causing the priapism but he has never followed up with the urologist. - Related Data Previous Rx's Medication Instructions Recorded Last Taken Type Carvedilol [Coreg] 25 mg PO Q12HR #60 tablet 06/27/17 Unknown Rx Valsartan/Hydrochlorothiazide 1 tab PO QDAY #30 tablet 06/27/17 Unknown Rx [Diovan Hct 160-25 mg] amLODIPine [Norvasc] 10 mg PO QDAY #30 tablet 06/27/17 Unknown Rx Allergies Allergy/AdvReac Type Severity Reaction Status Date / Time No Known Allergies Allergy Unverified 06/25/17 09:53 ED Review of Systems ROS: Stated complaint: PRIAPISM Other details as noted in HPI Comment: All other systems reviewed and negative Other: Constitutional: No fevers chills or weight loss Eyes: No eye pain visual changes or discharge ENT: No ear pain or throat pain Neck: Denies pain Respiratory: Denies cough wheezing shortness of breath Cardiovascular: Denies chest pain, palpitations, syncope GI: Denies abdominal pain, nausea, vomiting, diarrhea : Denies dysuria Musculoskeletal: Denies back pain Skin: Denies rash, lesions, erythema Neurologic: Denies headache, numbness, weakness Psychiatric: Denies suicidal ideation, hallucinations ED Past Medical Hx - Past Medical History Previous Medical History?: Yes Hx Hypertension: Yes Hx Congestive Heart Failure: Yes Hx Diabetes: No Hx Asthma: No Hx COPD: No Hx HIV: No - Surgical History Past Surgical History?: No - Social History Smoking Status: Never Smoker Substance Use Type: None - Medications Home Medications: Home Medications Medication Instructions Recorded Confirmed Last Taken Type Carvedilol [Coreg] 25 mg PO Q12HR #60 tablet 06/27/17 Unknown Rx Valsartan/Hydrochlorothiazide 1 tab PO QDAY #30 tablet 06/27/17 Unknown Rx [Diovan Hct 160-25 mg] amLODIPine [Norvasc] 10 mg PO QDAY #30 tablet 06/27/17 Unknown Rx ED Physical Exam - General Limitations: No Limitations - Other Other exam information: General: Moderate distress secondary to pain Head exam: Atraumatic, normocephalic Eyes exam: Normal appearance ENT: Moist mucous membrane, normal oropharynx Neck exam: Normal inspection, full range of motion, no meningismus nontender Respiratory exam: Clear to auscultation bilateral, no wheezes, rales, crackles Cardiovascular: Normal rate and rhythm, normal heart sounds Abdomen: Soft, nondistended, and nontender, with normal bowel sounds, no rebound, or guarding : Positive priapism Extremity: Full range of motion normal inspection no deformity Back: Normal Inspection, full range of motion, no tenderness Neurologic: Alert, oriented x3, cranial nerves intact, no motor or sensory deficit Psychiatric: normal affect, normal mood Skin: Warm, dry, intact ED Course Vital Signs 09/01/17 09/01/17 09/01/17 03:45 04:24 04:34 Temperature 98.5 F Pulse Rate 97 H 92 H Respiratory 18 20 Rate Blood Pressure 194/130 173/117 Blood Pressure 194/130 [Right] O2 Sat by Pulse 100 Oximetry - Consultations Consultation #1: 09/01/17 06:16 case d/w DR Goodman (urology) prior to aspiration attempt. I will attempt aspiration. rec send to office if still engorged - Penile Procedure Consent Obtained: verbal consent Time Out Performed: Yes Indication: priapism management Procedural Sedation: No Local Anesthesia Used: Lidocaine 1% without EPI Amount of Anesthesia Used (mls): 5 Priapism Management: aspiration, phenylephrine injection Complications: none Patient Tolerated Procedure: well Additional Comments: 50 mL of blood removed. 2 mL of phenylephrine solution injected then aspirated at the contralateral side. Positive reduction in priapism. Penis wrapped with elastic bandage to prevent swelling at puncture sites and agree engorgement. There was some mild re-engorgement after completion of procedure but not to the level of arrival. ED Medical Decision Making - Medical Decision Making bp improved after labetalol in pain reduction. Pt will be sent to Urology office today for evaluation. pt will be held here and observed until office opens to follow up - Differential Diagnosis priapism Critical Care Time: No Critical care attestation.: If time is entered above; I have spent that time in minutes in the direct care of this critically ill patient, excluding procedure time. ED Disposition Clinical Impression: Priapism, Uncontrolled hypertension Disposition: - TO HOME OR SELFCARE Is pt being admited?: No Condition: Stable Instructions: Hypertension (ED), Priapism (ED) Referrals: STEPHANE GOODMAN MD [Staff Physician] - 09/01/17
[2017-09-01 07:50] VITALS: BP 152/106
== END 2017-09-01 09:55 | disposition home or self-care (01) ==
LOC: ED 03:44
DX: N48.30 Priapism, unspecified (principal); I10 Essential (primary) hypertension
CPT/HCPCS: 54220; 96372; 96374; 96375; 99283; J1170; J2370; J2405; J3105

== ENCOUNTER 2017-09-22 14:58 | Emergency (ER) | payer BC ==
[2017-09-22] MEDS ORDERED: XYLOCAINE 1% 20 mL INFILTRATI ONE (16:11)
[2017-09-22] MEDS ORDERED: NEO-SYNEPHRINE 1 MG, NACL P/F VIAL (10 ML) 9.9 ML IJ**NOT IV ONE (17:00)
--- NOTE | 2017-09-22 18:17 | Emergency Department Report ---
ED Male HPI - General Chief complaint: Urogenital-Male Stated complaint: ERECTION FOR 4 HOURS Time Seen by Provider: 09/22/17 15:50 Source: patient Mode of arrival: Ambulatory Limitations: No Limitations - History of Present Illness Initial comments: Progressive onset groin pain that began at 7:30 this morning. Patient noticed that he is a erect and not flaccid since then. 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 The last episode was 3 weeks ago when he had to come to the ER for drainage. He has not seen urology for this issue. Has no history of sickle cell disease. No pain with urination. Denies abdominal pain. He does not use Viagra or cocaine. MD Complaint: groin pain - Related Data Previous Rx's Medication Instructions Recorded Last Taken Type Carvedilol [Coreg] 25 mg PO Q12HR #60 tablet 06/27/17 Unknown Rx Valsartan/Hydrochlorothiazide 1 tab PO QDAY #30 tablet 06/27/17 Unknown Rx [Diovan Hct 160-25 mg] amLODIPine [Norvasc] 10 mg PO QDAY #30 tablet 06/27/17 Unknown Rx Allergies Allergy/AdvReac Type Severity Reaction Status Date / Time No Known Allergies Allergy Verified 09/22/17 15:05 ED Review of Systems ROS: Stated complaint: ERECTION FOR 4 HOURS Other details as noted in HPI Constitutional: denies: chills, fever Eyes: denies: eye pain, eye discharge, vision change ENT: denies: ear pain, throat pain Respiratory: denies: cough, shortness of breath, wheezing Cardiovascular: denies: chest pain, palpitations Gastrointestinal: denies: abdominal pain, nausea, diarrhea Genitourinary: other (penis pain) Musculoskeletal: denies: back pain, joint swelling, arthralgia Skin: denies: rash, lesions Neurological: denies: headache, weakness, paresthesias Psychiatric: denies: anxiety, depression ED Past Medical Hx - Past Medical History Hx Hypertension: Yes Hx Congestive Heart Failure: Yes Hx Diabetes: No Hx Asthma: No Hx COPD: No Hx HIV: No Additional medical history: priapism - Family History Family history: hypertension - Social History Smoking Status: Never Smoker Substance Use Type: None - Medications Home Medications: Home Medications Medication Instructions Recorded Confirmed Last Taken Type Carvedilol [Coreg] 25 mg PO Q12HR #60 tablet 06/27/17 Unknown Rx Valsartan/Hydrochlorothiazide 1 tab PO QDAY #30 tablet 06/27/17 Unknown Rx [Diovan Hct 160-25 mg] amLODIPine [Norvasc] 10 mg PO QDAY #30 tablet 06/27/17 Unknown Rx ED Physical Exam - General Limitations: No Limitations - Head Head exam: Present: atraumatic, normocephalic - Eye Eye exam: Present: normal appearance - ENT ENT exam: Present: mucous membranes moist - Neck Neck exam: Present: normal inspection - Respiratory Respiratory exam: Present: normal lung sounds bilaterally. Absent: respiratory distress - Cardiovascular Cardiovascular Exam: Present: regular rate, normal rhythm. Absent: systolic murmur, diastolic murmur, rubs, gallop - exam: Present: other (erect/tender penis). Absent: scrotal swelling - Neurological Exam Neurological exam: Present: alert, oriented X3 - Psychiatric Psychiatric exam: Present: normal affect, normal mood - Skin Skin exam: Present: warm, dry, intact, normal color. Absent: rash ED Course Vital Signs 09/22/17 09/22/17 09/22/17 15:06 16:04 16:10 Temperature 98.4 F 98.0 F Pulse Rate 74 78 Respiratory 20 20 Rate Blood Pressure 148/101 Blood Pressure 162/108 [Left] O2 Sat by Pulse 100 100 100 Oximetry 09/22/17 09/22/17 09/22/17 16:15 16:30 16:47 Temperature Pulse Rate Respiratory Rate Blood Pressure 162/108 162/108 162/108 Blood Pressure [Left] O2 Sat by Pulse 100 100 Oximetry 09/22/17 17:33 Temperature Pulse Rate Respiratory Rate Blood Pressure 162/108 Blood Pressure [Left] O2 Sat by Pulse 85 Oximetry - Penile Procedure Time Out Performed: Yes Indication: priapism management Procedural Sedation: No Local Anesthesia Used: Penile Nerve Block Amount of Anesthesia Used (mls): 6 Reduction of Paraphimosis: other (aspiration) Priapism Management: aspiration (100 ml), phenylephrine injection (1000 mcg) Complications: none Patient Tolerated Procedure: well (has urinated post-procedure) ED Medical Decision Making - Medical Decision Making 29-year-old male with past medical history of hypertension, priapism that he presents to the ER for priapism. His erection has been present for about 4-6 hours. At bedside, he is restrained and phenylephrine. See procedure note for details. Reevaluation, patient was flaccid and felt symptomatically improved. Patient has follow-up with urology in 2 weeks further evaluation of this issue. Return precautions have been discussed. Clear for d/c. - Differential Diagnosis epididymitis, orchitis, torsion, priapism, cellulitis Critical care attestation.: If time is entered above; I have spent that time in minutes in the direct care of this critically ill patient, excluding procedure time. ED Disposition Clinical Impression: Priapism Disposition: DC-01 TO HOME OR SELFCARE Is pt being admited?: No Does the pt Need Aspirin: No Condition: Good Instructions: Priapism (ED) Additional Instructions: Call your urologist and ask for an earlier appointment. Make sure that you keep your appointment to see urology.
[2017-09-22 19:39] VITALS: BP 162/104
== END 2017-09-22 18:55 | disposition home or self-care (01) ==
LOC: ED 14:58
DX: N48.30 Priapism, unspecified (principal); I11.0 Hypertensive heart disease with heart failure; I50.9 Heart failure, unspecified
CPT/HCPCS: 54220; 96374; 99282; J2370

== ENCOUNTER 2017-09-30 11:51 | Emergency (ER) | payer BC ==
[2017-09-30] MEDS ORDERED: DILAUDID IV ONE (12:15)
[2017-09-30] MEDS ORDERED: XYLOCAINE 1% 20 mL INFILTRATI ONE (12:57)
[2017-09-30 13:01] LABS: Basophils % (Auto) 0.3 % (0.0-1.8); Eosinophils # (Auto) 0.2 K/mm3 (0.0-0.4); Eosinophils % (Auto) 1.7 % (0.0-4.3); Hematocrit 36.6 % (35.5-45.6); Hemoglobin 12.1 gm/dl (11.8-15.2); Lymphocytes # (Auto) 1.2 K/mm3 (1.2-5.4); Lymphocytes % (Auto) 12.1 % (13.4-35.0); Mean Corpuscular HGB Conc 33 % (32-34); Mean Corpuscular Hemoglobin 29 pg (28-32); Mean Corpuscular Volume 87 fl (84-94); Monocytes # (Auto) 0.7 K/mm3 (0.0-0.8); Monocytes % (Auto) 6.7 % (0.0-7.3); Platelet Count 211 K/mm3 (140-440); Red Blood Count 4.24 M/mm3 (3.65-5.03); Red Cell Distribution Width 16.2 % (13.2-15.2)
[2017-09-30 13:11] LABS: Calcium 9.6 mg/dL (8.4-10.2)
[2017-09-30] MEDS ORDERED: NEO SYNEPHRINE IV ONE (13:15)
--- NOTE | 2017-09-30 14:22 | Emergency Department Report ---
ED Male HPI - General Chief complaint: Urogenital-Male Stated complaint: LONG ERECTION TIME Time Seen by Provider: 09/30/17 12:25 Source: patient Mode of arrival: Ambulatory Limitations: No Limitations - History of Present Illness Initial comments: Patient is a 37-year-old male past her chronic knee disease who presents with penile pain. Patient has a priapism. He says it's been going on since 8 AM. The pain is a 10 out of 10. He has an achy type of pain. It radiates to his groin nothing makes it better or worse patient denies trauma to the area. He also has had the same symptoms from before last week. Patient has not followed up with a urologist patient does not do cocaine or any drugs patient denies any other symptoms. - Related Data Previous Rx's Medication Instructions Recorded Last Taken Type Carvedilol [Coreg] 25 mg PO Q12HR #60 tablet 06/27/17 Unknown Rx Valsartan/Hydrochlorothiazide 1 tab PO QDAY #30 tablet 06/27/17 Unknown Rx [Diovan Hct 160-25 mg] amLODIPine [Norvasc] 10 mg PO QDAY #30 tablet 06/27/17 Unknown Rx Allergies Allergy/AdvReac Type Severity Reaction Status Date / Time No Known Allergies Allergy Verified 09/22/17 15:05 ED Review of Systems ROS: Stated complaint: LONG ERECTION TIME Other details as noted in HPI Constitutional: denies: chills, fever Eyes: denies: eye pain, eye discharge, vision change ENT: denies: ear pain, throat pain Respiratory: denies: cough, shortness of breath, wheezing Cardiovascular: denies: chest pain, palpitations Endocrine: no symptoms reported Gastrointestinal: denies: abdominal pain, nausea, diarrhea Genitourinary: urgency. denies: dysuria Musculoskeletal: denies: back pain, joint swelling, arthralgia Skin: denies: rash, lesions Neurological: denies: headache, weakness, paresthesias Psychiatric: denies: anxiety, depression Hematological/Lymphatic: denies: easy bleeding, easy bruising ED Past Medical Hx - Past Medical History Hx Hypertension: Yes Hx Congestive Heart Failure: Yes Hx Diabetes: No Hx Deep Vein Thrombosis: No Hx Arthritis: Yes Hx Asthma: No Hx COPD: No Hx HIV: No Additional medical history: priapism - Surgical History Past Surgical History?: No - Social History Smoking Status: Former Smoker Substance Use Type: Marijuana - Medications Home Medications: Home Medications Medication Instructions Recorded Confirmed Last Taken Type Carvedilol [Coreg] 25 mg PO Q12HR #60 tablet 06/27/17 09/30/17 Unknown Rx Valsartan/Hydrochlorothiazide 1 tab PO QDAY #30 tablet 06/27/17 09/30/17 Unknown Rx [Diovan Hct 160-25 mg] amLODIPine [Norvasc] 10 mg PO QDAY #30 tablet 06/27/17 09/30/17 Unknown Rx ED Physical Exam - General Limitations: No Limitations General appearance: alert, in no apparent distress - Head Head exam: Present: atraumatic, normocephalic - Eye Eye exam: Present: normal appearance - ENT ENT exam: Present: mucous membranes moist - Neck Neck exam: Present: normal inspection - Respiratory Respiratory exam: Present: normal lung sounds bilaterally. Absent: respiratory distress - Cardiovascular Cardiovascular Exam: Present: regular rate, normal rhythm. Absent: systolic murmur, diastolic murmur, rubs, gallop - GI/Abdominal GI/Abdominal exam: Present: soft, normal bowel sounds - Rectal Rectal exam: Present: deferred - exam: Present: other (priapism) - Extremities Exam Extremities exam: Present: normal inspection - Back Exam Back exam: Present: normal inspection - Neurological Exam Neurological exam: Present: alert, oriented X3 - Psychiatric Psychiatric exam: Present: normal affect, normal mood - Skin Skin exam: Present: warm, dry, intact, normal color. Absent: rash ED Course Vital Signs 09/30/17 09/30/17 09/30/17 12:04 12:33 12:40 Temperature 98 F Pulse Rate 81 90 Respiratory 18 20 20 Rate Blood Pressure 160/108 Blood Pressure 190/100 [Left] O2 Sat by Pulse 98 99 Oximetry 09/30/17 09/30/17 12:48 14:40 Temperature Pulse Rate 81 Respiratory 16 Rate Blood Pressure Blood Pressure 151/93 160/100 [Left] O2 Sat by Pulse 99 Oximetry - Consultations Consultation #1: 09/30/17 15:[address] Diaz urologist he asked for reduction of patient's Priapism for him to have no sex with his until he follows up with the urologist. He also requested patient have a urine drug screen which was negative. He is good to be discharged home and Dr. Diaz requested no medications be given to the patient. - Penile Procedure Consent Obtained: verbal consent, emergent situation Time Out Performed: Yes Indication: priapism management Local Anesthesia Used: Lidocaine 1% without EPI Amount of Anesthesia Used (mls): 10 Priapism Management: aspiration, phenylephrine injection Complications: none Patient Tolerated Procedure: well Additional Comments: Priapism was drained via butterfly needle at 9 and 3:00 positions respectively on drained 50 ML's of blood from penis. Patient tolerated procedure well and 6 mL phenylephrine was placed in penis and successful reduction of penis occurred after that. ED Medical Decision Making - Lab Data Result diagrams: 09/30/17 12:40 09/30/17 12:40 Lab Results 09/30/17 09/30/17 09/30/17 Range/Units 12:40 12:40 14:41 WBC 9.7 (4.5-11.0) K/mm3 RBC 4.24 (3.65-5.03) M/mm3 Hgb 12.1 (11.8-15.2) gm/dl Hct 36.6 (35.5-45.6) % MCV 87 (84-94) fl MCH 29 (28-32) pg MCHC 33 (32-34) % RDW 16.2 H (13.2-15.2) % Plt Count 211 (140-440) K/mm3 Lymph % (Auto) 12.1 L (13.4-35.0) % [place] % (Auto) 6.7 (0.0-7.3) % Eos % (Auto) 1.7 (0.0-4.3) % Baso % (Auto) 0.3 (0.0-1.8) % Lymph # 1.2 (1.2-5.4) K/mm3 [place] # 0.7 (0.0-0.8) K/mm3 Eos # 0.2 (0.0-0.4) K/mm3 Baso # 0.0 (0.0-0.1) K/mm3 Seg Neutrophils % 79.2 H (40.0-70.0) % Seg Neutrophils # 7.7 (1.8-7.7) K/mm3 Sodium 140 (137-145) mmol/L Potassium 4.3 (3.6-5.0) mmol/L Chloride 99.8 (98-107) mmol/L Carbon Dioxide 22 (22-30) mmol/L Anion Gap 23 mmol/L BUN 57 H (9-20) mg/dL Creatinine 4.3 H (0.8-1.5) mg/dL Estimated GFR 19 ml/min BUN/Creatinine Ratio 13 % Glucose 112 H (75-100) mg/dL Calcium 9.6 (8.4-10.2) mg/dL Urine Opiates Screen Presumptive negative Urine Methadone Screen Presumptive negative Ur Barbiturates Screen Presumptive negative Ur Phencyclidine Scrn Presumptive negative Ur Amphetamines Screen Presumptive negative U Benzodiazepines Scrn Presumptive negative Urine Cocaine Screen Presumptive negative U Marijuana (THC) Screen Presumptive positive Drugs of Abuse Note Disclamer - Medical Decision Making Cdx: Low flow priapism ddx: High flow priapism, Priapism 2/2 drug use I will consult urology, I will get urine drug screen, cbc, bmp, and I will drain priapism Patient's pain is better after priapism drainage he is flaccid and pain free. Gave the patient verbal discharge instructions patient agrees with plan Critical care attestation.: If time is entered above; I have spent that time in minutes in the direct care of this critically ill patient, excluding procedure time. ED Disposition Clinical Impression: Priapism Chronic kidney disease Qualifiers: Chronic kidney disease stage: stage 4 (severe) Qualified Code(s): N18.4 - Chronic kidney disease, stage 4 (severe) Disposition: DC-01 TO HOME OR SELFCARE Is pt being admited?: No Does the pt Need Aspirin: No Condition: Stable Instructions: Priapism (ED) Referrals: VANDANA DIAZ MD [Staff Physician] - 3-5 Days Forms: Work/School Release Form(ED)
[2017-09-30 15:07] LABS: Amphetamine Screen,Urine PRESUMPTIVE NEGATIVE; Benzodiazepines Screen,Urine PRESUMPTIVE NEGATIVE; Cocaine Screen,Urine PRESUMPTIVE NEGATIVE; Methadone Screen,Urine PRESUMPTIVE NEGATIVE; Opiate Screen,Urine PRESUMPTIVE NEGATIVE
[2017-09-30 15:19] LABS: Cannabinoid Screen,Urine PRESUMPTIVE POSITIVE
[2017-09-30 15:48] VITALS: BP 140/93
== END 2017-09-30 15:48 | disposition home or self-care (01) ==
LOC: ED 11:51
DX: N48.30 Priapism, unspecified (principal); I13.0 Hypertensive heart and chronic kidney disease with heart failure and stage 1 through stage 4 chronic kidney disease, or unspecified chronic kidney disease; N18.4 Chronic kidney disease, stage 4 (severe); I50.9 Heart failure, unspecified; M19.90 Unspecified osteoarthritis, unspecified site; F12.10 Cannabis abuse, uncomplicated; Z87.891 Personal history of nicotine dependence
CPT/HCPCS: 36415; 54220; 80048; 80307; 85025; 96374; 96375; 99284; J1170; J2370

== ENCOUNTER 2018-07-27 10:32 | Emergency (ER) | payer BC ==
[2018-07-27] MEDS ORDERED: ZOFRAN IV ONE (11:04)
[2018-07-27] MEDS ORDERED: DILAUDID IV ONE (11:04)
[2018-07-27] MEDS ORDERED: XYLOCAINE 1% 20 mL INFILTRATI ONE (11:05)
[2018-07-27] MEDS ORDERED: BRETHINE SUB-Q ONE (11:30)
[2018-07-27] MEDS ORDERED: NORMODYNE IV ONE (11:34)
--- NOTE | 2018-07-27 11:36 | Emergency Department Report ---
ED Male HPI - General Chief complaint: Urogenital-Male Stated complaint: ERECTION PAIN Time Seen by Provider: 07/27/18 11:03 Source: patient Mode of arrival: Ambulatory Limitations: No Limitations - History of Present Illness Initial comments: 38-year-old male with past medical history hypertension and priapism presents to the hospital with complaints of priapism/erection since 6:15 AM. Pain is significant aggravating or alleviating factors. Patient has a history of recurrent priapism and had been seen by urologist in the past. His cause is un known and he's been tested for sickle cell. Presents with elevated blood pressure and did not take any medications this morning but is otherwise compliant. - Related Data Previous Rx's Medication Instructions Recorded Last Taken Type Carvedilol [Coreg] 25 mg PO Q12HR #60 tablet 06/27/17 Unknown Rx Valsartan/Hydrochlorothiazide 1 tab PO QDAY #30 tablet 06/27/17 Unknown Rx [Diovan Hct 160-25 mg] amLODIPine [Norvasc] 10 mg PO QDAY #30 tablet 06/27/17 Unknown Rx Allergies Allergy/AdvReac Type Severity Reaction Status Date / Time No Known Allergies Allergy Verified 09/22/17 15:05 ED Review of Systems ROS: Stated complaint: ERECTION PAIN Other details as noted in HPI Comment: All other systems reviewed and negative ED Past Medical Hx - Past Medical History Hx Hypertension: Yes Hx Congestive Heart Failure: Yes Hx Diabetes: No Hx Deep Vein Thrombosis: No Hx Arthritis: Yes Hx Asthma: No Hx COPD: No Hx HIV: No Additional medical history: priapism - Surgical History Past Surgical History?: No - Social History Smoking Status: Never Smoker Substance Use Type: None - Medications Home Medications: Home Medications Medication Instructions Recorded Confirmed Last Taken Type Carvedilol [Coreg] 25 mg PO Q12HR #60 tablet 06/27/17 09/30/17 Unknown Rx Valsartan/Hydrochlorothiazide 1 tab PO QDAY #30 tablet 06/27/17 09/30/17 Unknown Rx [Diovan Hct 160-25 mg] amLODIPine [Norvasc] 10 mg PO QDAY #30 tablet 06/27/17 09/30/17 Unknown Rx ED Physical Exam - General Limitations: No Limitations - Other Other exam information: General: No limitations, patient is alert in no acute distress Head exam: Atraumatic, normocephalic Eyes exam: Normal appearance ENT: Moist mucous membrane, normal oropharynx Neck exam: Normal inspection, full range of motion, no meningismus nontender Respiratory exam: Clear to auscultation bilateral, no wheezes, rales, crackles Cardiovascular: Normal rate and rhythm, normal heart sounds Abdomen: Soft, nondistended, and nontender, with normal bowel sounds, no rebound, or guarding : Circumcised, processes, no testicular tenderness. No penile lesions Extremity: Full range of motion normal inspection no deformity Back: Normal Inspection, full range of motion, no tenderness Neurologic: Alert, oriented x3, cranial nerves intact, no motor or sensory deficit Psychiatric: normal affect, normal mood Skin: Warm, dry, intact ED Course Vital Signs 07/27/18 07/27/18 07/27/18 10:43 11:40 11:45 Temperature 97.8 F Pulse Rate 92 H 77 Respiratory 18 Rate Blood Pressure 173/122 184/124 171/114 O2 Sat by Pulse 98 Oximetry 07/27/18 07/27/18 07/27/18 12:00 12:15 12:31 Temperature Pulse Rate 80 78 83 Respiratory 16 14 14 Rate Blood Pressure 171/117 171/117 164/118 O2 Sat by Pulse 99 97 96 Oximetry 07/27/18 07/27/18 07/27/18 12:45 13:00 13:06 Temperature Pulse Rate 85 80 97 H Respiratory 19 16 Rate Blood Pressure 164/118 165/118 165/118 O2 Sat by Pulse 96 98 Oximetry 07/27/18 07/27/18 07/27/18 13:15 13:31 13:46 Temperature Pulse Rate 85 82 84 Respiratory 13 16 16 Rate Blood Pressure 165/118 165/118 165/118 O2 Sat by Pulse 98 99 96 Oximetry 07/27/18 14:00 Temperature Pulse Rate 81 Respiratory 17 Rate Blood Pressure 151/104 O2 Sat by Pulse 98 Oximetry - Reevaluation(s) Reevaluation #1: 07/27/18 14:30 Patient observed after penile aspirates with no recurrence of priapism patient's symptoms have resolved - Penile Procedure Consent Obtained: verbal consent Time Out Performed: Yes Indication: paraphimosis Sedation/Analgesia: opioids (Dilaudid 1 mg) Local Anesthesia Used: Lidocaine 1% without EPI Amount of Anesthesia Used (mls): 7 Priapism Management: aspiration (120 mL of dark blood), phenylephrine injection Complications: none Patient Tolerated Procedure: well Additional Comments: Dionisio wrap applied to try to prevent hematoma formation ED Medical Decision Making - Medical Decision Making BP treatment and downward after meds. Patient still needs to take his blood pressure medication. Successful treatment of priapism with needle aspiration - Differential Diagnosis priapism Critical Care Time: No Critical care attestation.: If time is entered above; I have spent that time in minutes in the direct care of this critically ill patient, excluding procedure time. ED Disposition Clinical Impression: Priapism, HTN (hypertension) Disposition: TO HOME OR SELFCARE Is pt being admited?: No Does the pt Need Aspirin: No Condition: Stable Instructions: Hypertension (ED), Priapism (ED) Additional Instructions: Follow-up with a urologist. Continue your prescribed medication. Return if symptoms worsen as indicated by your discharge instructions Referrals: VANDANA NEGRON MD [Staff Physician] - 3-5 Days Time of Disposition: 14:32
[2018-07-27] MEDS ORDERED: NEO-SYNEPHRINE 1 MG, NACL P/F VIAL (10 ML) 9.9 ML IJ**NOT IV ONE (12:05)
[2018-07-27] MEDS ORDERED: CATAPRES PO ONE (12:38)
[2018-07-27 15:39] VITALS: BP 154/110
== END 2018-07-27 15:50 | disposition home or self-care (01) ==
LOC: ED 10:32
DX: N48.30 Priapism, unspecified (principal); I11.0 Hypertensive heart disease with heart failure; I50.9 Heart failure, unspecified; M19.90 Unspecified osteoarthritis, unspecified site
CPT/HCPCS: 54220; 96372; 96374; 96375; 99282; J1170; J2370; J2405; J3105; 37212

== ENCOUNTER 2019-02-09 12:17 | Emergency (ER) | payer BC ==
[2019-02-09] MEDS ORDERED: BRETHINE SUB-Q ONE (12:47)
[2019-02-09] MEDS ORDERED: [UNRECOGNIZED DRUG - OTHER] IJ**NOT IV ONE (12:50)
[2019-02-09] MEDS ORDERED: PHENYLEPHRINE IJ**NOT IV ONE ×2 (12:50→13:15)
[2019-02-09] MEDS ORDERED: SODIUM CHLORIDE IJ**NOT IV ONE ×2 (12:50→13:15)
[2019-02-09] MEDS ORDERED: XYLOCAINE 2% INFILTRATI ONE (12:50)
[2019-02-09] MEDS ORDERED: MORPHINE IM ONE (13:01)
--- NOTE | 2019-02-09 13:09 | Emergency Department Report ---
ED Male HPI - General Chief complaint: Urogenital-Male Stated complaint: ERECTION OVER 4 HOURS Time Seen by Provider: 02/09/19 12:36 Source: patient, EMS (ems notes not available at time of chart dictation), RN notes reviewed, old records reviewed Mode of arrival: Stretcher Limitations: No Limitations - History of Present Illness Initial comments: This is a 39-year-old gentleman, not known to this provider previously, history of renal insufficiency, cannabis consumption, priapism, hypertension, presents to the ER today with a complaint of recurrent painful priapism. Symptoms were present upon waking up this morning. He denies sexual arousal at this time. He denies recreational drugs, lower extremity weakness, numbness. He denies self injection into the penis itself. He denies other complaints. He endorses that this is similar to prior episodes of priapism. Typically, in the past, he has required aspiration. MD Complaint: other -: Gradual (woke up with symptoms. Symptoms constant. Do not radiate anywhere. They're painful. Throbbing in nature. No radiation. No exacerbating or relieving factors that he is aware.) Location: penis Radiation: none Severity: moderate Quality: other Improves with: other Worsens with: other - Related Data Sexually active: Yes Previous Rx's Medication Instructions Recorded Last Taken Type Carvedilol [Coreg] 25 mg PO Q12HR #60 tablet 06/27/17 Unknown Rx Valsartan/Hydrochlorothiazide 1 tab PO QDAY #30 tablet 06/27/17 Unknown Rx [Diovan Hct 160-25 mg] amLODIPine [Norvasc] 10 mg PO QDAY #30 tablet 06/27/17 Unknown Rx oxyCODONE /ACETAMINOPHEN [Percocet 1 tab PO Q6HR PRN #9 tablet 02/09/19 Unknown Rx 5/325] Allergies Allergy/AdvReac Type Severity Reaction Status Date / Time No Known Allergies Allergy Verified 02/09/19 12:53 ED Review of Systems ROS: Stated complaint: ERECTION OVER 4 HOURS Other details as noted in HPI Constitutional: denies: fever Eyes: denies: eye discharge ENT: denies: epistaxis Respiratory: denies: cough Cardiovascular: denies: chest pain Gastrointestinal: denies: abdominal pain Genitourinary: other (priapism. Painful. No endorsement of testicular pain.) Musculoskeletal: denies: back pain Neurological: denies: weakness, numbness, paresthesias ED Past Medical Hx - Past Medical History Previous Medical History?: Yes Hx Hypertension: Yes Hx Congestive Heart Failure: Yes Hx Diabetes: No Hx Deep Vein Thrombosis: No Hx Arthritis: Yes Hx Asthma: No Hx COPD: No Hx HIV: No Additional medical history: priapism - Surgical History Past Surgical History?: No - Social History Smoking Status: Never Smoker Substance Use Type: Marijuana - Medications Home Medications: Home Medications Medication Instructions Recorded Confirmed Last Taken Type Carvedilol [Coreg] 25 mg PO Q12HR #60 tablet 06/27/17 09/30/17 Unknown Rx Valsartan/Hydrochlorothiazide 1 tab PO QDAY #30 tablet 06/27/17 09/30/17 Unknown Rx [Diovan Hct 160-25 mg] amLODIPine [Norvasc] 10 mg PO QDAY #30 tablet 06/27/17 09/30/17 Unknown Rx oxyCODONE /ACETAMINOPHEN [Percocet 1 tab PO Q6HR PRN #9 tablet 02/09/19 Unknown Rx 5/325] ED Physical Exam - General Limitations: No Limitations General appearance: alert, in no apparent distress - Head Head exam: Present: atraumatic, normocephalic - Eye Eye exam: Present: normal appearance, EOMI. Absent: nystagmus - ENT ENT exam: Present: normal exam, normal orophraynx, mucous membranes moist, normal external ear exam - Neck Neck exam: Present: normal inspection, full ROM. Absent: tenderness, meningismus - Respiratory Respiratory exam: Present: normal lung sounds bilaterally. Absent: respiratory distress - Cardiovascular Cardiovascular Exam: Present: regular rate, normal rhythm, normal heart sounds. Absent: bradycardia, tachycardia, irregular rhythm, systolic murmur, diastolic murmur, rubs, gallop - GI/Abdominal GI/Abdominal exam: Present: soft. Absent: distended, tenderness, guarding, rebound, rigid, pulsatile mass - Rectal Rectal exam: Present: deferred - exam: Absent: normal inspection (there is a priapism noted. There is no tyshawn ticular tenderness noted.) - Extremities Exam Extremities exam: Present: normal inspection, full ROM, other (2+ pulses noted in the bilateral upper, lower extremities. Compartments soft. No long bony tenderness. The pelvis is stable.). Absent: calf tenderness - Back Exam Back exam: Present: normal inspection, full ROM. Absent: tenderness, CVA tenderness (R), CVA tenderness (L), paraspinal tenderness, vertebral tenderness - Neurological Exam Neurological exam: Present: alert, oriented X3, other (Extraocular movements intact. Tongue midline. No facial droop. Facial sensation intact to light touch in the V1, V2, V3 distribution bilaterally. 5 and 5 strength in 4 extrem ities.. Sensation is intact to light touch in 4 extremities.). Absent: motor sensory deficit - Psychiatric Psychiatric exam: Present: normal affect, normal mood - Skin Skin exam: Present: warm, dry, intact, normal color. Absent: rash ED Course Vital Signs 02/09/19 02/09/19 02/09/19 12:36 12:55 13:20 Temperature 99.0 F Pulse Rate 85 88 65 Respiratory 16 18 18 Rate Blood Pressure 146/97 Blood Pressure 135/96 135/95 [Right] O2 Sat by Pulse 100 100 Oximetry 02/09/19 14:58 Temperature Pulse Rate 74 Respiratory 18 Rate Blood Pressure Blood Pressure 132/69 [Right] O2 Sat by Pulse 100 Oximetry - Reevaluation(s) Reevaluation #1: 02/09/19 13:58 Differential diagnosis, including not limited to: Recurrent priapism Assessment and plan: 39-year-old gentleman with recurrent priapism. He is given terbutaline, 0.5 mg subcutaneous, with no success. We will perform aspiration and dorsal block. Written informed consent is provided by patient. Reevaluation #2: 02/09/19 15:24 Patient required aspiration and phenylephrine injection. He tolerated the procedure well and he successfully D Silvestre. He is counseled to follow up closely with outpatient urology. He is counseled not to participate in sex until cleared by his primary care doctor or urology specialist. He verbalizes understanding. He'll be discharged at this point in time. Reevaluation #3: 02/09/19 15:33 Patient flaccid at this time, and symptomatically resolved. - Penile Procedure Consent Obtained: verbal consent, written consent, emergent situation Time Out Performed: Yes Indication: priapism management Procedural Sedation: No Sedation/Analgesia: opioids Local Anesthesia Used: Lidocaine 2% without EPI Amount of Anesthesia Used (mls): 10 Priapism Management: aspiration, phenylephrine injection Complications: none Patient Tolerated Procedure: well Additional Comments: Patient signed informed written consent, witnessed by nurse ANAMARIA CORBETT Patient placed on cardiac rehabilitation specialist, and was prepared in typical aseptic techniq ue. Patient's dorsal aspects of the shaft was infiltrated with 10-12 mL of 2% lidocaine without epinephrine, providing dorsal penile analgesia. Patient tolerated this well. Then, a 19-gauge needle was placed on the right corpus cavernosum, 10 o'clock position, and 30-40 mL of dark blood is aspirated. A 19- gauge needle is subsequently placed in a left corpus cavernosum, 3 o'clock position, and 30-40 mL of dark blood is aspirated. Continuous pressure is applied to the bilateral corpus cavernosum, continuously expressing blood. A 21-gauge needle is used to infiltrate approximately 3 mL of phenylephrine, concentration 10 mg/500 cc, on each side of the penis. There is successful detumescence and then a gentle pressure dressing is applied The patient tolerated the procedure well. ED Medical Decision Making - Lab Data Vital Signs 02/09/19 02/09/19 02/09/19 12:36 12:55 13:20 Temperature 99.0 F Pulse Rate 85 88 65 Respiratory 16 18 18 Rate Blood Pressure 146/97 Blood Pressure 135/96 135/95 [Right] O2 Sat by Pulse 100 100 Oximetry 02/09/19 14:58 Temperature Pulse Rate 74 Respiratory 18 Rate Blood Pressure Blood Pressure 132/69 [Right] O2 Sat by Pulse 100 Oximetry Critical care attestation.: If time is entered above; I have spent that time in minutes in the direct care of this critically ill patient, excluding procedure time. ED Disposition Clinical Impression: Priapism Disposition: DC-01 TO HOME OR SELFCARE Is pt being admited?: No Does the pt Need Aspirin: No Condition: Stable Additional Instructions: Rest, avoid heavy lifting and strenuous physical activities. Do not have sex until cleared by a urology specialist. Do not consume marijuana or recreational drugs/substances. These may be contributing to priapism/prolonged erection. Complications of priapism may include impotence, erectile dysfunction, and infertility. Follow up with a urology specialist within the next 24-36 hours. Take the pain medication as needed/directed. Return to the emergency room right away with new, worsening or different symptoms not present on the initial emergency room evaluation. Prescriptions: oxyCODONE /ACETAMINOPHEN [Percocet 5/325] 1 tab PO Q6HR PRN #9 tablet PRN Reason: Pain Referrals: SULPHUR ARIEL GARCIA MD [Primary Care Provider] - 3-5 Days VANDANA NEGRON MD [Staff Physician] - 3-5 Days [facility] [Provider Group] - 3-5 Days
[2019-02-09] MEDS ORDERED: [UNRECOGNIZED DRUG - OTHER] IJ**NOT IV ONE (13:15)
[2019-02-09] MEDS ORDERED: NACL 0.9% IR ONE (14:00)
[2019-02-09] MEDS ORDERED: DILAUDID ONE (14:13)
[2019-02-09] MEDS ORDERED: DILAUDID IM ONE (15:06)
[2019-02-09 15:48] VITALS: BP 129/65
== END 2019-02-09 15:47 | disposition home or self-care (01) ==
LOC: ED 12:17
DX: N48.30 Priapism, unspecified (principal); I11.0 Hypertensive heart disease with heart failure; I50.9 Heart failure, unspecified; F12.10 Cannabis abuse, uncomplicated; M19.90 Unspecified osteoarthritis, unspecified site; N28.9 Disorder of kidney and ureter, unspecified; Z79.899 Other long term (current) drug therapy
CPT/HCPCS: 54220; 96372; 99283; J1170; J2270; J2370; J3105

== ENCOUNTER 2020-03-21 13:42 | Inpatient (IN) | payer BC ==
--- NOTE | 2020-03-21 13:54 | Event Note ---
ED Screening Note ED Screening Note: PCP Dr. Meléndez had blood work drawn a couple of days ago was called today and advised to present to the ED advised his Cr was 10 denies any symptoms states he did have some lower back pain last week but resolved no n/v/d no dark urine no decreased urine output PMHx HTN, CKD not on dialysis, never been on dialysis states he takes amlodipine, valsartan, carvedilol no allergies to meds has been taking ibuprofen,states he takes 3 pills a day This initial assessment/diagnostic orders/clinical plan/treatment(s) is/are subject to change based on patients health status, clinical progression and re- assessment by fellow clinical providers in the ED. Further treatment and workup at subsequent clinical providers discretion. Patient/guardian urged not to elope from the ED as their condition may be serious if not clinically assessed and managed. Initial orders include: labs UA
[2020-03-21 14:26] LABS: Bilirubin,Urine NEG (Negative); Color,Urine Straw (Yellow)
[2020-03-21 14:27] LABS: Blood,Urine MOD (Negative); Mucus,Urine FEW /HPF; Protein,Urine >500 mg/dL (Negative); RBC,Urine < 1.0 /HPF (0.0-6.0); Urobilinogen,Urine < 2.0 mg/dL (<2.0)
[2020-03-21 14:41] LABS: Basophils % (Auto) 0.6 % (0.0-1.8); Eosinophils # (Auto) 0.6 K/mm3 (0.0-0.4); Eosinophils % (Auto) 7.6 % (0.0-4.3); Hematocrit 31.8 % (35.5-45.6); Hemoglobin 10.5 gm/dl (11.8-15.2); Lymphocytes # (Auto) 1.7 K/mm3 (1.2-5.4); Lymphocytes % (Auto) 22.6 % (13.4-35.0); Mean Corpuscular HGB Conc 33 % (32-34); Mean Corpuscular Volume 88 fl (84-94); Monocytes # (Auto) 0.5 K/mm3 (0.0-0.8); Monocytes % (Auto) 6.2 % (0.0-7.3); Platelet Count 256 K/mm3 (140-440); Red Blood Count 3.61 M/mm3 (3.65-5.03); Red Cell Distribution Width 14.1 % (13.2-15.2)
[2020-03-21 15:02] LABS: Albumin 3.8 g/dL (3.9-5); Calcium 8.3 mg/dL (8.4-10.2)
[2020-03-21] MEDS ORDERED: SODIUM CHLORIDE 0.9% 1000 ML 1,000 ML IV ONE (17:15)
--- NOTE | 2020-03-21 17:55 | Emergency Department Report ---
ED Recheck HPI - General Chief Complaint: Recheck/Abnormal Lab/Rx Stated Complaint: KIDNEY FUNCTION BAD Time Seen by Provider: 03/21/20 13:50 Source: patient Mode of arrival: Ambulatory Limitations: No Limitations - History of Present Illness Initial Comments: PCP Dr. Meléndez had blood work drawn a couple of days ago was called today and advised to present to the ED advised his Cr was 10 denies any symptoms states he did have some lower back pain last week but resolved no n/v/d no dark urine no decreased urine output PMHx HTN, CKD not on dialysis, never been on dialysis states he takes amlodipine, valsartan, carvedilol no allergies to meds has been taking ibuprofen,states he takes 3 pills a day - Related Data Previous Rx's Medication Instructions Recorded Last Taken Type Valsartan/Hydrochlorothiazide 1 tab PO QDAY #30 tablet 06/27/17 Unknown Rx [Diovan Hct 160-25 mg] amLODIPine 10 mg PO QDAY #30 tablet 06/27/17 03/21/20 Rx carvediloL [Coreg] 25 mg PO Q12HR #60 tablet 06/27/17 03/21/20 Rx Allergies Allergy/AdvReac Type Severity Reaction Status Date / Time No Known Allergies Allergy Verified 03/21/20 13:46 ED Review of Systems ROS: Stated complaint: KIDNEY FUNCTION BAD Other details as noted in HPI Comment: All other systems reviewed and negative ED Past Medical Hx - Past Medical History Hx Hypertension: Yes Hx Congestive Heart Failure: Yes Hx Diabetes: No Hx Deep Vein Thrombosis: No Hx Arthritis: Yes Hx Asthma: No Hx COPD: No Hx HIV: No Additional medical history: priapism - Surgical History Past Surgical History?: No - Social History Smoking Status: Never Smoker Substance Use Type: Marijuana - Medications Home Medications: Home Medications Medication Instructions Recorded Confirmed Last Taken Type Valsartan/Hydrochlorothiazide 1 tab PO QDAY #30 tablet 06/27/17 03/21/20 Unknown Rx [Diovan Hct 160-25 mg] amLODIPine 10 mg PO QDAY #30 tablet 06/27/17 03/21/20 03/21/20 Rx carvediloL [Coreg] 25 mg PO Q12HR #60 tablet 06/27/17 03/21/20 03/21/20 Rx ED Physical Exam - General Limitations: No Limitations General appearance: alert, in no apparent distress - Head Head exam: Present: atraumatic, normocephalic - Eye Eye exam: Present: normal appearance - ENT ENT exam: Present: mucous membranes moist - Respiratory Respiratory exam: Present: normal lung sounds bilaterally. Absent: respiratory distress, wheezes, rales, rhonchi, stridor, chest wall tenderness, accessory muscle use, decreased breath sounds, prolonged expiratory - Cardiovascular Cardiovascular Exam: Present: regular rate, normal rhythm, normal heart sounds. Absent: systolic murmur, diastolic murmur, rubs, gallop - GI/Abdominal GI/Abdominal exam: Present: soft, normal bowel sounds. Absent: distended, tenderness, guarding, rebound, rigid - Neurological Exam Neurological exam: Present: alert, oriented X3 - Psychiatric Psychiatric exam: Present: normal affect, normal mood - Skin Skin exam: Present: warm, dry, intact ED Course Vital Signs 03/21/20 03/21/20 03/21/20 13:48 18:04 19:57 Temperature 98.2 F 98.0 F Pulse Rate 79 82 Respiratory 16 16 16 Rate Blood Pressure 133/86 157/105 [Left] O2 Sat by Pulse 98 99 98 Oximetry - Consultations Consultation #1: 03/21/20 17:[address] Mills, practice business asst who states that patient will need nonemergent dialysis tomorrow morning, he states that he will consult on patient, advised to admit to hospitalist service 03/21/20 17:57 Called hospitalist service, will call back 03/21/20 18:[address] Hess, hospitalist who will accept patient to hospitalist service, advised to admit patient to Dr. Caal, will resume care of patient ED Recheck MDM - Medical Decision Making PCP Dr. Meléndez had blood work drawn a couple of days ago was called today and advised to present to the ED advised his Cr was 10 denies any symptoms states he did have some lower back pain last week but resolved no n/v/d no dark urine no decreased urine output PMHx HTN, CKD not on dialysis, never been on dialysis states he takes amlodipine, valsartan, carvedilol no allergies to meds has been taking ibuprofen,states he takes 3 pills a day Vitals are normal No abnormality on physical examination as documented in chart. Lab significant for creatinine of 9.9, GFR of 7, CK 1276, greater than 500 protein present in the urine. pt has significantly worsening renal failure, his previous Cr in 2018 was between 3-4. Spoke to Dr. Mills, practice business asst who states that patient will need nonemergent dialysis tomorrow morning, he states that he will consult on patient, advised to admit to hospitalist service. Spoke with Dr. Hess, hospitalist who will accept patient to hospitalist service, advised to admit patient to Dr. Caal, will resume care of patient. Discussed case with Dr. Ferrera, ER attending who agrees with treatment plan. Critical care attestation.: If time is entered above; I have spent that time in minutes in the direct care of this critically ill patient, excluding procedure time. ED Disposition Clinical Impression: Elevated CK Renal failure Qualifiers: Renal failure chronicity: acute on chronic Acute renal failure type: unspecified Chronic kidney disease stage: stage 5, not on chronic dialysis Qualified Code(s): N17.9 - Acute kidney failure, unspecified Proteinuria Qualifiers: Proteinuria type: unspecified Qualified Code(s): R80.9 - Proteinuria, unspecified Back pain Qualifiers: Back pain location: low back pain Chronicity: unspecified Back pain laterality: unspecified Sciatica presence: without sciatica Qualified Code(s): M54.5 - Low back pain Disposition: 09 OP ADMIT IP TO THIS HOSP Is pt being admited?: Yes Does the pt Need Aspirin: No Condition: Fair Time of Disposition: 18:12
[2020-03-21] MEDS ORDERED: ACETAMINOPHEN 325 MG TAB PO PRN (19:14)
[2020-03-21] MEDS ORDERED: ONDANSETRON 4 MG/2 ML INJ IV PRN (19:14)
[2020-03-21] MEDS ORDERED: SODIUM CHLORIDE 0.9% 1000 ML 1,000 ML IV SCH (19:15)
--- NOTE | 2020-03-21 19:23 | History and Physical Report ---
History of Present Illness Date of examination: 03/21/20 Date of admission: 03/21/20 18:12 Chief complaint: Patient was referred by primary care physician to go to ED after his lab results were reviewed History of present illness: Ronnie Morales is a 40-year-old -[place] male with history of hypertension who has not seen his primary care physician in more than a year but apparently was getting refills every month and states that he has been compliant with medication went to see his primary care physician 2 days ago as his was insisting him to go, had blood work drawn, and then he was called this morning to go to the ED. patient is alert and oriented and he offers no specific complaints whatsoever. Lab results reviewed patient is in end-stage renal disease and he is being admitted for further management Past History Past Medical History: hypertension Medications and Allergies Allergies Allergy/AdvReac Type Severity Reaction Status Date / Time No Known Allergies Allergy Verified 03/21/20 13:46 Home Medications Medication Instructions Recorded Confirmed Last Taken Type Valsartan/Hydrochlorothiazide 1 tab PO QDAY #30 tablet 06/27/17 03/21/20 Unknown Rx [Diovan Hct 160-25 mg] amLODIPine 10 mg PO QDAY #30 tablet 06/27/17 03/21/20 03/21/20 Rx carvediloL [Coreg] 25 mg PO Q12HR #60 tablet 06/27/17 03/21/20 03/21/20 Rx Active Meds: Active Medications Acetaminophen (Tylenol) 650 mg PO Q4H PRN PRN Reason: Pain MILD(1-3)/Fever >100.5/ISAACS Amlodipine Besylate (Amlodipine) 5 mg PO QDAY AMISHA Sodium Chloride (Nacl 0.9% 1000 Ml) 1,000 mls @ 75 mls/hr IV DIRECT AMISHA Ondansetron HCl (Zofran) 4 mg IV Q8H PRN PRN Reason: Nausea And Vomiting Sodium Chloride (Sodium Chloride Flush Syringe 10 Ml) 10 ml IV BID AMISHA Sodium Chloride (Sodium Chloride Flush Syringe 10 Ml) 10 ml IV PRN PRN PRN Reason: LINE FLUSH Review of Systems Constitutional: no weight loss, no weight gain, no fever, no chills, no weakness Ears, nose, mouth and throat: no ear pain, no sore throat, no headache, no vertigo Cardiovascular: high blood pressure, no chest pain, no palpitations, no syncope, no lightheadedness, no shortness of breath Respiratory: no cough, no shortness of breath Gastrointestinal: no abdominal pain, no nausea, no vomiting, no diarrhea, no constipation, no melena Genitourinary Male: no dysuria Rectal: no pain Musculoskeletal: no neck pain, no arthritis Integumentary: no rash Neurological: no head injury, no seizures, no syncope, no headaches Psychiatric: no anxiety, no depression Exam - Constitutional Vitals: Temp Pulse Resp BP Pulse Ox 98.2 F 79 16 133/86 99 03/21/20 13:48 03/21/20 13:48 03/21/20 18:04 03/21/20 13:48 03/21/20 18:04 General appearance: Present: no acute distress, well-nourished - EENT Eyes: Present: PERRL, EOM intact ENT: hearing intact, clear oral mucosa - Neck Neck: Present: supple, normal ROM - Respiratory Respiratory effort: normal Respiratory: bilateral: CTA - Cardiovascular Rhythm: regular Heart Sounds: Present: S1 & S2 - Extremities Extremities: No edema - Abdominal General gastrointestinal: Present: soft, non-tender. Absent: hepatomegaly, splenomegaly Male genitourinary: Present: deferred - Rectal Rectal Exam: deferred - Integumentary Integumentary: Present: clear. Absent: rash - Musculoskeletal Musculoskeletal: strength equal bilaterally - Psychiatric Psychiatric: appropriate mood/affect - Neurologic Neurologic: no focal deficits Results - Labs CBC & Chem 7: 03/21/20 14:27 03/21/20 14:27 Labs: Abnormal lab results 03/21/20 03/21/20 Range/Units 14:27 14:27 RBC 3.61 L (3.65-5.03) M/mm3 Hgb 10.5 L (11.8-15.2) gm/dl Hct 31.8 L (35.5-45.6) % Eos % (Auto) 7.6 H (0.0-4.3) % Eos # 0.6 H (0.0-0.4) K/mm3 Carbon Dioxide 18 L (22-30) mmol/L BUN 74 H (9-20) mg/dL Creatinine 9.9 H (0.8-1.3) mg/dL Glucose 110 H (75-100) mg/dL Calcium 8.3 L (8.4-10.2) mg/dL Alkaline Phosphatase 178 H (35-129) units/L Total Creatine Kinase 1276 H (55-170) units/L Albumin 3.8 L (3.9-5) g/dL Assessment and Plan - Patient Problems (1) Renal failure (ARF), acute on chronic Current Visit: No Status: Acute Qualifiers: Acute renal failure type: unspecified Chronic kidney disease stage: stage 2 (mild) Qualified Code(s): N17.9 - Acute kidney failure, unspecified; N18.2 - Chronic kidney disease, stage 2 (mild); N18.2 - Chronic kidney disease, stage 2 (mild) Plan to address problem: Baseline renal function is not known Most likely patient is in end-stage renal disease Nephrology consulted Likely to be started on hemodialysis tomorrow Serum potassium is fair (2) Hypertension Current Visit: Yes Status: Acute Plan to address problem: Well-controlled We will hold home medications Start on amlodipine 5 mg daily Adjust medications as needed (3) Normocytic anemia Current Visit: Yes Status: Chronic Plan to address problem: Likely anemia of chronic kidney disease No overt bleed Monitor H&H (4) Metabolic acidosis Current Visit: Yes Status: Chronic Plan to address problem: Secondary to renal failure (5) Proteinuria Current Visit: Yes Status: Acute Qualifiers: Proteinuria type: unspecified Qualified Code(s): R80.9 - Proteinuria, unspecified Plan to address problem: UA reviewed Has significant proteinuria nephrology consulted
[2020-03-22 00:12] LABS: Creatinine,Urine 81.9 mg/dL (0.1-20.0)
[2020-03-22 06:07] LABS: Calcium 8.3 mg/dL (8.4-10.2)
[2020-03-22] MEDS ORDERED: SODIUM CHLORIDE 0.9% 100 ML IV PRN ×2 (08:13→09:23)
--- NOTE | 2020-03-22 08:15 | Consultation ---
History of Present Illness - Reason for Consult Consult date: 03/22/20 end stage renal disease Requesting physician: FABIAN BARBER - History of Present Illness This is a 40 yo M with past medical history of long standing hypertension, with advanced CKD however he has not been following with his PCP for more than 1 year. Pt has been receiving BP meds refills every month and was compliant with all his medications. About 2 days ago pt had blood work done at his PCP's o ffice, when he was found to have significantly elevated BUN/Cr and was sent to ER. BUN/Cr was elevated at 74/9.9, and serum bicarb was 18. renal consult was requested for management of advanced CKD/ESRD. pt reports generalized fatigue, frequent nausea and decreased appetite, denies SOB, CP, palpitations, abd pain, diarrhea, dysuria. Based on chart review Cr was 4.1 in 2017. Past History Past Medical History: hypertension Past Surgical History: No surgical history Social history: no significant social history Family history: hypertension Medications and Allergies Allergies Allergy/AdvReac Type Severity Reaction Status Date / Time No Known Allergies Allergy Verified 03/21/20 13:46 Home Medications Medication Instructions Recorded Confirmed Last Taken Type Valsartan/Hydrochlorothiazide 1 tab PO QDAY #30 tablet 06/27/17 03/21/20 Unknown Rx [Diovan Hct 160-25 mg] amLODIPine 10 mg PO QDAY #30 tablet 06/27/17 03/21/20 03/21/20 Rx carvediloL [Coreg] 25 mg PO Q12HR #60 tablet 06/27/17 03/21/20 03/21/20 Rx Active Meds: Active Medications Acetaminophen (Tylenol) 650 mg PO Q4H PRN PRN Reason: Pain MILD(1-3)/Fever >100.5/ISAACS Amlodipine Besylate (Amlodipine) 5 mg PO QDAY AMISHA Sodium Chloride (Nacl 0.9%) 100 mls @ 999 mls/hr IV YARI PRN PRN Reason: Hypotension Ondansetron HCl (Zofran) 4 mg IV Q8H PRN PRN Reason: Nausea And Vomiting Sodium Chloride (Sodium Chloride Flush Syringe 10 Ml) 10 ml IV BID [facility] Last Admin: 03/21/20 21:04 Dose: 10 ml Documented by: Sodium Chloride (Sodium Chloride Flush Syringe 10 Ml) 10 ml IV PRN PRN PRN Reason: LINE FLUSH Review of Systems All systems: negative Constitutional: anorexia, fatigue, weakness Exam - Vital Signs Vital signs: Vital Signs Temp Pulse Resp BP Pulse Ox 98.2 F 79 16 133/86 98 03/21/20 13:48 03/21/20 13:48 03/21/20 13:48 03/21/20 13:48 03/21/20 13:48 - General Appearance General appearance: well-developed, well-nourished, appears stated age EENT: ATNC, PERRL, mucous membranes moist Neck: Present: neck supple Respiratory: Clear to Ascultation Heart: regular, S1S2 Gastrointestinal: Present: normoactive bowel sounds Integumentary: no rash, other (no edema ) Neurologic: no focal deficit, alert and oriented x3, strength 5/5, CN 3-12 intact Psychiatric: mood/affect appropriate, cooperative Results - Lab Results 03/21/20 14:27 03/22/20 04:50 Most recent lab results Calcium 8.3 mg/dL (8.4-10.2) L 03/22/20 04:50 Urine Creatinine 81.9 mg/dL (0.1-20.0) H 03/21/20 20:41 Urine Sodium 105 mmol/L 03/21/20 20:41 Urine Total Protein 181 mg/dL (5-11.8) H 03/21/20 20:41 Assessment and Plan - Patient Problems (1) ESRD (end stage renal disease) Current Visit: Yes Status: Acute Plan to address problem: pt most likely has advanced CKD, now approaching ESRD, secondary to presumed hypertensive nephrosclerosis. pt presenting with subtle uremic symptoms and met acidosis. discussed indications, risks and benefits of renal replacement therapy with patient, who understands and agrees to procedure. Vascular surgery consulted for permcath placement, will initiate HD once access is available. consult case management for outpatient HD placement. (2) Hypertensive chronic kidney disease with stage 5 chronic kidney disease or end stage renal disease Current Visit: Yes Status: Acute Plan to address problem: monitor BP on current meds (3) Metabolic acidosis Current Visit: No Status: Chronic Plan to address problem: to be corrected with HD (4) Anemia in chronic illness Current Visit: Yes Status: Acute Plan to address problem: check iron store/ferritin level. will monitor CBC and start MALLORY if Hb remains < 10
[2020-03-22] MEDS ORDERED: HEPARIN/NS 5000 UNIT/500ML 500 ML IR ONE (09:58)
[2020-03-22] MEDS ORDERED: fentaNYL 100 MCG/2 ML INJ ONE (09:58)
[2020-03-22] MEDS ORDERED: MIDAZOLAM 2 MG/2 ML INJ ONE (09:58)
[2020-03-22] MEDS ORDERED: HEPARIN 10,000 UNITS/10 ML VIAL ONE (09:58)
[2020-03-22] MEDS: FAMOTIDINE 20 MG TAB PO SCH (09:59)
[2020-03-22] MEDS ORDERED: amLODIPine 5 MG TAB PO SCH ×2 (10:00→18:21)
[2020-03-22] MEDS: LIDOCAINE 1%/EPINEPHRINE 1:100,000 VIAL (20 ML) INFILTRATI ONE ×2 (10:35→10:38)
--- NOTE | 2020-03-22 10:50 | Operative Report ---
Operative Report Operative Report: Exam: Ultrasound of fluoroscopic guided placement of tunneled hemodialysis catheter Clinical indication: Patient with chronic renal failure requiring immediate dialysis access. Date: 03/22/2020 Procedure: Following an explanation of the risks, benefits and alternatives; written informed consent was obtained. The patient was brought to the angiographic suite and placed in supine position on the examination table. Initial ultrasound evaluation of his neck demonstrated a patent right internal jugular vein. The patient's right neck and chest wall were prepped and draped in the usual sterile fashion. 1% lidocaine was used for anesthesia. Under ultrasound guidance, the right internal jugular vein was cannulated with a 7 cm 18-gauge needle. A 0.035 guidewire was advanced centrally under fluoroscopy into the IVC for anchoring and to document intravenous positioning. The needle was removed. An appropriate catheter exit site was chosen along the lateral right chest wall. 1% lidocaine was used for anesthesia at the catheter exit site and along the tunnel tract. A Bard 23 cm glidepath tunneled hemodialysis catheter was then tunneled antegrade from the catheter exit site to the venotomy site. Following serial dilation over the guidewire under fluoroscopy, a 15 [place] peel-away sheath was placed over the guidewire under fluoroscopy and advanced centrally. The guidewire and trocar were removed and the catheter inserted to the peel-away sheath. The peel-away sheath was removed. The catheter tip was positioned in the proximal right atrium. Both ports flushed and aspirated easily and were then locked with appropriate volumes of heparin. The venotomy was closed using 4-0 Vicryl suture and Dermabond. 2-0 Ethilon was applied to the catheter exit site for anchoring. Sterile dressings were then applied. The patient tolerated the procedure well. There were no immediate postprocedure complications. A minimal amount of sedation was utilized. Continuous cardiopulmonary monitoring is utilized. Impression: Ultrasound of fluoroscopic guided placement of tunneled hemodialysis catheter via the right internal jugular vein.
--- NOTE | 2020-03-22 11:09 | Progress Note ---
Assessment and Plan Assessment and plan: 40-year-old -[place] male with history of hypertension, kidney disease who has not seen his primary care physician in more than a year but apparently was getting refills every month and states that he has been compliant with medication. He went to see his primary care physician 2 days ago as his was insisting him to go, had blood work drawn, and then he was called this morning to go to the ED. patient is alert and oriented and he offers no specific complaints whatsoever. Lab results reviewed patient is in end-stage renal disease creatinine 9.9. Patient takes amlodipine and valsartan for blood pressure. He also takes ibuprofen 4 tablets every day for arthritis of the right hand. 03/22. Patient seen and examined at bedside this morning. Nephrology has been consulted. Patient will have a permacath placed for hemodialysis. - Patient Problems (1) ESRD (end stage renal disease) Current Visit: Yes Status: Acute Plan to address problem: Plan for hemodialysis through a permacath Vascular surgeon consulted Nephrology recommendations appreciated (2) Hypertension Current Visit: No Status: Acute Plan to address problem: Continue amlodipine Add hydralazine 25 mg every 8 Continue to monitor blood pressure (3) DVT prophylaxis Current Visit: Yes Status: Acute Plan to address problem: Heparin (4) Advance care planning Current Visit: Yes Status: Acute Plan to address problem: Patient will need to have outpatient hemodialysis set up eventually. production team manager consulted History Interval history: See assessment and plan Hospitalist Physical - Constitutional Vitals: Temp Pulse Resp BP Pulse Ox 98.9 F 78 20 161/96 92 03/22/20 05:26 03/22/20 09:59 03/22/20 05:26 03/22/20 09:59 03/22/20 05:26 General appearance: Present: no acute distress, well-nourished - EENT Eyes: Present: PERRL - Neck Neck: Present: supple, normal ROM - Respiratory Respiratory: bilateral: CTA - Cardiovascular Rhythm: regular Heart Sounds: Present: S1 & S2 - Abdominal General gastrointestinal: soft, non-tender, non-distended - Psychiatric Psychiatric: appropriate mood/affect - Neurologic Neurologic: CNII-XII intact Results - Labs CBC & Chem 7: 03/21/20 14:27 03/22/20 04:50 Labs: Laboratory Last Values WBC 7.4 K/mm3 (4.5-11.0) 03/21/20 14:27 RBC 3.61 M/mm3 (3.65-5.03) L 03/21/20 14:27 Hgb 10.5 gm/dl (11.8-15.2) L 03/21/20 14:27 Hct 31.8 % (35.5-45.6) L 03/21/20 14:27 MCV 88 fl (84-94) 03/21/20 14: MCH 29 pg (28-32) 03/21/20 14:27 MCHC 33 % (32-34) 03/21/20 14:27 RDW 14.1 % (13.2-15.2) 03/21/20 14:27 Plt Count 256 K/mm3 (140-440) 03/21/20 14:27 Lymph % (Auto) 22.6 % (13.4-35.0) 03/21/20 14:27 [place] % (Auto) 6.2 % (0.0-7.3) 03/21/20 14:27 Eos % (Auto) 7.6 % (0.0-4.3) H 03/21/20 14:27 Baso % (Auto) 0.6 % (0.0-1.8) 03/21/20 14:27 Lymph # 1.7 K/mm3 (1.2-5.4) 03/21/20 14:27 [place] # 0.5 K/mm3 (0.0-0.8) 03/21/20 14:27 Eos # 0.6 K/mm3 (0.0-0.4) H 03/21/20 14:27 Baso # 0.0 K/mm3 (0.0-0.1) 03/21/20 14:27 Seg Neutrophils % 63.0 % (40.0-70.0) 03/21/20 14: Seg Neutrophils # 4.6 K/mm3 (1.8-7.7) 03/21/20 14:27 Sodium 141 mmol/L (137-145) 03/22/20 04:50 Potassium 4.6 mmol/L (3.6-5.0) 03/22/20 04:50 Chloride 103.8 mmol/L (98-107) 03/22/20 04:50 Carbon Dioxide 19 mmol/L (22-30) L 03/22/20 04:50 Anion Gap 23 mmol/L 03/22/20 04:50 BUN 71 mg/dL (9-20) H 03/22/20 04:50 Creatinine 9.9 mg/dL (0.8-1.3) H 03/22/20 04:50 Estimated GFR 7 ml/min 03/22/20 04:50 BUN/Creatinine Ratio 7 % 03/22/20 04:50 Glucose 95 mg/dL (75-100) 03/22/20 04:50 Calcium 8.3 mg/dL (8.4-10.2) L 03/22/20 04:50 Total Bilirubin 0.20 mg/dL (0.1-1.2) 03/21/20 14:27 AST 18 units/L (5-40) 03/21/20 14:27 ALT 14 units/L (7-56) 03/21/20 14:27 Alkaline Phosphatase 178 units/L (35-129) H 03/21/20 14:27 Total Creatine Kinase 1276 units/L (55-170) H 03/21/20 14:27 Total Protein 7.5 g/dL (6.3-8.2) 03/21/20 14:27 Albumin 3.8 g/dL (3.9-5) L 03/21/20 14:27 Albumin/Globulin Ratio 1.0 % 03/21/20 14:27 Urine Color Straw (Yellow) 03/21/20 Unknown Urine Turbidity Clear (Clear) 03/21/20 Unknown Urine pH 6.0 (5.0-7.0) 03/21/20 Unknown Ur Specific [place] 1.012 (1.003-1.030) 03/21/20 Unknown Urine Protein >500 mg/dL (Negative) 03/21/20 Unknown Urine Glucose (UA) Neg mg/dL (Negative) 03/21/20 Unknown Urine Ketones Neg mg/dL (Negative) 03/21/20 Unknown Urine Blood Mod (Negative) 03/21/20 Unknown Urine Nitrite Neg (Negative) 03/21/20 Unknown Urine Bilirubin Neg (Negative) 03/21/20 Unknown Urine Urobilinogen < 2.0 mg/dL (<2.0) 03/21/20 Unknown Ur Leukocyte Esterase Neg (Negative) 03/21/20 Unknown Urine WBC (Auto) 1.0 /HPF (0.0-6.0) 03/21/20 Unknown Urine RBC (Auto) < 1.0 /HPF (0.0-6.0) 03/21/20 Unknown Urine Mucus Few /HPF 03/21/20 Unknown Urine Creatinine 81.9 mg/dL (0.1-20.0) H 03/21/20 20:41 Urine Sodium 105 mmol/L 03/21/20 20:41 Urine Total Protein 181 mg/dL (5-11.8) H 03/21/20 20:41 Awan/IV: Voiding Method Toilet IV Catheter Type [Left Wrist] Peripheral IV Active Medications - Current Medications Current Medications: Generic Name Dose Route Start Last Admin Trade Name Freq PRN Reason Stop Dose Admin Acetaminophen 650 mg 03/21/20 19:14 Tylenol PO Q4H PRN Pain MILD(1-3)/Fever >100.5/ISAACS Amlodipine Besylate 5 mg 03/22/20 10:00 03/22/20 09:59 Amlodipine PO 5 mg QDAY AMISHA Administration Famotidine 20 mg 03/22/20 10:00 03/22/20 09:59 Pepcid PO 20 mg DAILY AMISHA Administration Sodium Chloride 100 mls @ 999 mls/hr 03/22/20 09:23 Nacl 0.9% IV YARI PRN Hypotension Ondansetron HCl 4 mg 03/21/20 19:14 Zofran IV Q8H PRN Nausea And Vomiting Sodium Chloride 10 ml 03/21/20 22:00 03/21/20 21:04 Sodium Chloride Flush Syringe 10 Ml IV 10 ml BID AMISHA Administration Sodium Chloride 10 ml 03/21/20 19:14 Sodium Chloride Flush Syringe 10 Ml IV PRN PRN LINE FLUSH
[2020-03-22] MEDS: hydrALAZINE 25 MG TAB PO SCH ×2 (16:52→23:30)
[2020-03-22 17:18] LABS: Hepatitis B Surface Antigen Non-Reactive (Negative); Hepatitis C Virus Antibody Non-Reactive (NonReactive)
[2020-03-22] MEDS ORDERED: amLODIPine 10 MG TAB PO SCH (18:00)
[2020-03-22] MEDS ORDERED: hydrALAZINE 20 MG/1 ML INJ IV PRN (18:19)
[2020-03-22] MEDS: cloNIDine 0.1 MG TAB PO SCH ×2 (18:50→23:29)
[2020-03-22] MEDS ORDERED: amLODIPine 5 MG TAB PO ONE (19:00)
[2020-03-22] MEDS: HEPARIN 5,000 UNIT/1 ML VIAL SUB-Q SCH (23:30)
[2020-03-23 04:33] LABS: Basophils % (Auto) 0.3 % (0.0-1.8); Eosinophils # (Auto) 0.4 K/mm3 (0.0-0.4); Eosinophils % (Auto) 5.2 % (0.0-4.3); Hematocrit 31.7 % (35.5-45.6); Hemoglobin 10.7 gm/dl (11.8-15.2); Lymphocytes # (Auto) 1.8 K/mm3 (1.2-5.4); Lymphocytes % (Auto) 22.5 % (13.4-35.0); Mean Corpuscular HGB Conc 34 % (32-34); Mean Corpuscular Volume 86 fl (84-94); Monocytes # (Auto) 0.5 K/mm3 (0.0-0.8); Monocytes % (Auto) 5.9 % (0.0-7.3); Platelet Count 261 K/mm3 (140-440); Red Blood Count 3.66 M/mm3 (3.65-5.03); Red Cell Distribution Width 14.1 % (13.2-15.2)
[2020-03-23 04:52] LABS: Albumin 3.8 g/dL (3.9-5)
[2020-03-23] MEDS: hydrALAZINE 25 MG TAB PO SCH ×3 (06:39→22:09)
[2020-03-23] MEDS: HEPARIN 5,000 UNIT/1 ML VIAL SUB-Q SCH ×3 (06:41→22:10)
[2020-03-23] MEDS: FAMOTIDINE 20 MG TAB PO SCH (09:00)
[2020-03-23] MEDS: cloNIDine 0.1 MG TAB PO SCH ×2 (09:36→22:09)
[2020-03-23] MEDS: amLODIPine 10 MG TAB PO SCH (09:37)
[2020-03-23] MEDS ORDERED: SODIUM CHLORIDE 0.9% 100 ML IV PRN (10:22)
--- NOTE | 2020-03-23 10:36 | Progress Note ---
Assessment and Plan - Patient Problems (1) ESRD (end stage renal disease) Current Visit: Yes Status: Acute Plan to address problem: ESRD secondary to presumed hypertensive nephrosclerosis. pt presenting with subtle uremic symptoms and met acidosis. initiated HD on 03/22/20, cont MWF schedule. consult case management for outpatient HD placement. (2) Hypertensive chronic kidney disease with stage 5 chronic kidney disease or end stage renal disease Current Visit: Yes Status: Acute Plan to address problem: monitor BP on current meds (3) Metabolic acidosis Current Visit: No Status: Chronic Plan to address problem: to be corrected with HD (4) Anemia in chronic illness Current Visit: Yes Status: Acute Plan to address problem: check iron store/ferritin level. will monitor CBC and start MALLORY if Hb remains < 10 Subjective Date of service: 03/23/20 Principal diagnosis: ESRD Interval history: pt awake, alert, in no acute distress, tolerated HD well yesterday, denies fever, chills, SOB, CP, cramping, n/v/d Objective - Vital Signs Vital signs: Vital Signs - 12hr 03/23/20 03/23/20 03/23/20 05:41 06:39 09:36 Temperature 98.8 F Pulse Rate 76 76 75 Respiratory 20 Rate Blood Pressure 149/111 149/111 149/106 O2 Sat by Pulse 94 Oximetry 03/23/20 09:37 Temperature Pulse Rate 75 Respiratory Rate Blood Pressure 149/106 O2 Sat by Pulse Oximetry - General Appearance General appearance: well-developed, well-nourished, appears stated age EENT: ATNC, PERRL, mucous membranes moist Neck: no JVD, other (Rt IJ permcath ) Respiratory: Present: Clear to Ascultation Cardiology: regular, S1S2 Gastrointestinal: normoactive bowel sounds Integumentary: no rash, other (no edema ) Neurologic: no focal deficit, alert and oriented x3, strength 5/5, CN 3-12 intact Psychiatric: mood/affect appropriate, cooperative - Lab 03/23/20 03:28 03/23/20 03:28 Most recent lab results Calcium 9.0 mg/dL (8.4-10.2) 03/23/20 03:28 Urine Creatinine 81.9 mg/dL (0.1-20.0) H 03/21/20 20:41 Urine Sodium 105 mmol/L 03/21/20 20:41 Urine Total Protein 181 mg/dL (5-11.8) H 03/21/20 20:41 Medications & Allergies - Medications Allergies/Adverse Reactions: Allergies No Known Allergies Allergy (Verified 03/21/20 13:46) Home Medications: Home Medications Medication Instructions Recorded Confirmed Last Taken Type Valsartan/Hydrochlorothiazide 1 tab PO QDAY #30 tablet 06/27/17 03/21/20 Unknown Rx [Diovan Hct 160-25 mg] amLODIPine 10 mg PO QDAY #30 tablet 06/27/17 03/21/20 03/21/20 Rx carvediloL [Coreg] 25 mg PO Q12HR #60 tablet 06/27/17 03/21/20 03/21/20 Rx Active Medications: Generic Name Dose Route Start Last Admin Trade Name Freq PRN Reason Stop Dose Admin Acetaminophen 650 mg 03/21/20 19:14 Tylenol PO Q4H PRN Pain MILD(1-3)/Fever >100.5/ISAACS Amlodipine Besylate 10 mg 03/23/20 10:00 03/23/20 09:37 Amlodipine PO 10 mg DAILY AMISHA Administration Clonidine HCl 0.1 mg 03/22/20 18:30 03/23/20 09:36 Catapres PO 0.1 mg Q12HR AMISHA Administration Famotidine 20 mg 03/22/20 10:00 03/23/20 09:00 Pepcid PO 20 mg DAILY AMISHA Administration Heparin Sodium (Porcine) 5,000 unit 03/23/20 00:00 03/23/20 06:41 Heparin SUB-Q 5,000 unit Q8HR AMISHA Administration Hydralazine HCl 25 mg 03/22/20 14:00 03/23/20 06:39 Apresoline PO 25 mg Q8HR AMISHA Administration Hydralazine HCl 10 mg 03/22/20 18:19 Apresoline IV Q4HR PRN Blood Pressure Sodium Chloride 100 mls @ 999 mls/hr 03/23/20 10:22 Nacl 0.9% IV YARI PRN Hypotension Ondansetron HCl 4 mg 03/21/20 19:14 Zofran IV Q8H PRN Nausea And Vomiting Sodium Chloride 10 ml 03/21/20 22:00 03/23/20 09:37 Sodium Chloride Flush Syringe 10 Ml IV 10 ml BID AMISHA Administration Sodium Chloride 10 ml 03/21/20 19:14 Sodium Chloride Flush Syringe 10 Ml IV PRN PRN LINE FLUSH
--- NOTE | 2020-03-23 11:25 | Progress Note ---
Assessment and Plan Assessment and plan: 40-year-old -[place] male with history of hypertension, kidney disease who has not seen his primary care physician in more than a year but apparently was getting refills every month and states that he has been compliant with medication. He went to see his primary care physician 2 days ago as his was insisting him to go, had blood work drawn, and then he was called this morning to go to the ED. patient is alert and oriented and he offers no specific complaints whatsoever. Lab results reviewed patient is in end-stage renal disease creatinine 9.9. Patient takes amlodipine and valsartan for blood pressure. He also takes ibuprofen 4 tablets every day for arthritis of the right hand. 03/22. Patient seen and examined at bedside this morning. Nephrology has been consulted. Patient will have a permacath placed for hemodialysis. 03/23. Patient had hemodialysis yesterday. Nephrology currently following. He denies any complaint this morning. Blood pressure is elevated and his blood pressure medications have been adjusted. - Patient Problems (1) ESRD (end stage renal disease) Current Visit: Yes Status: Acute Plan to address problem: Started on hemodialysis Nephrology recommendations appreciated (2) Hypertension Current Visit: No Status: Acute Plan to address problem: Continue current blood pressure medications Continue to monitor blood pressure (3) DVT prophylaxis Current Visit: Yes Status: Acute Plan to address problem: Heparin (4) Advance care planning Current Visit: Yes Status: Acute Plan to address problem: Patient will need to have outpatient hemodialysis set up eventually. partner marketing manager consulted History Interval history: See assessment and plan Hospitalist Physical - Constitutional Vitals: Temp Pulse Resp BP Pulse Ox 98.8 F 75 20 149/106 98 03/23/20 05:41 03/23/20 09:37 03/23/20 05:41 03/23/20 09:37 03/23/20 10:00 General appearance: Present: no acute distress, well-nourished - EENT Eyes: Present: PERRL - Neck Neck: Present: supple - Respiratory Respiratory: bilateral: CTA - Cardiovascular Heart Sounds: Present: S1 & S2 - Extremities Extremities: no ischemia - Abdominal General gastrointestinal: soft, non-distended - Psychiatric Psychiatric: appropriate mood/affect - Neurologic Neurologic: CNII-XII intact Results - Labs CBC & Chem 7: 03/23/20 03:28 03/23/20 03:28 Labs: Laboratory Last Values WBC 8.1 K/mm3 (4.5-11.0) 03/23/20 03:28 RBC 3.66 M/mm3 (3.65-5.03) 03/23/20 03:28 Hgb 10.7 gm/dl (11.8-15.2) L 03/23/20 03:28 Hct 31.7 % (35.5-45.6) L 03/23/20 03:28 MCV 86 fl (84-94) 03/23/20 03:28 MCH 29 pg (28-32) 03/23/20 03:28 MCHC 34 % (32-34) 03/23/20 03:28 RDW 14.1 % (13.2-15.2) 03/23/20 03:28 Plt Count 261 K/mm3 (140-440) 03/23/20 03:28 Lymph % (Auto) 22.5 % (13.4-35.0) 03/23/20 03:28 [place] % (Auto) 5.9 % (0.0-7.3) 03/23/20 03:28 Eos % (Auto) 5.2 % (0.0-4.3) H 03/23/20 03:28 Baso % (Auto) 0.3 % (0.0-1.8) 03/23/20 03:28 Lymph # 1.8 K/mm3 (1.2-5.4) 03/23/20 03:28 [place] # 0.5 K/mm3 (0.0-0.8) 03/23/20 03:28 Eos # 0.4 K/mm3 (0.0-0.4) 03/23/20 03:28 Baso # 0.0 K/mm3 (0.0-0.1) 03/23/20 03:28 Seg Neutrophils % 66.1 % (40.0-70.0) 03/23/20 03:28 Seg Neutrophils # 5.3 K/mm3 (1.8-7.7) 03/23/20 03:28 Sodium 137 mmol/L (137-145) 03/23/20 03:28 Potassium 4.1 mmol/L (3.6-5.0) 03/23/20 03:28 Chloride 96.8 mmol/L (98-107) L 03/23/20 03:28 Carbon Dioxide 22 mmol/L (22-30) 03/23/20 03:28 Anion Gap 22 mmol/L 03/23/20 03:28 BUN 41 mg/dL (9-20) H 03/23/20 03:28 Creatinine 7.4 mg/dL (0.8-1.3) H 03/23/20 03:28 Estimated GFR 10 ml/min 03/23/20 03:28 BUN/Creatinine Ratio 6 % 03/23/20 03:28 Glucose 92 mg/dL (75-100) 03/23/20 03:28 Calcium 9.0 mg/dL (8.4-10.2) 03/23/20 03:28 Total Bilirubin 0.30 mg/dL (0.1-1.2) 03/23/20 03:28 AST 14 units/L (5-40) 03/23/20 03:28 ALT 11 units/L (7-56) 03/23/20 03:28 Alkaline Phosphatase 174 units/L (35-129) H 03/23/20 03:28 Total Creatine Kinase 1276 units/L (55-170) H 03/21/20 14:27 Total Protein 7.7 g/dL (6.3-8.2) 03/23/20 03:28 Albumin 3.8 g/dL (3.9-5) L 03/23/20 03:28 Albumin/Globulin Ratio 1.0 % 03/23/20 03:28 Urine Color Straw (Yellow) 03/21/20 Unknown Urine Turbidity Clear (Clear) 03/21/20 Unknown Urine pH 6.0 (5.0-7.0) 03/21/20 Unknown Ur Specific [place] 1.012 (1.003-1.030) 03/21/20 Unknown Urine Protein >500 mg/dL (Negative) 03/21/20 Unknown Urine Glucose (UA) Neg mg/dL (Negative) 03/21/20 Unknown Urine Ketones Neg mg/dL (Negative) 03/21/20 Unknown Urine Blood Mod (Negative) 03/21/20 Unknown Urine Nitrite Neg (Negative) 03/21/20 Unknown Urine Bilirubin Neg (Negative) 03/21/20 Unknown Urine Urobilinogen < 2.0 mg/dL (<2.0) 03/21/20 Unknown Ur Leukocyte Esterase Neg (Negative) 03/21/20 Unknown Urine WBC (Auto) 1.0 /HPF (0.0-6.0) 03/21/20 Unknown Urine RBC (Auto) < 1.0 /HPF (0.0-6.0) 03/21/20 Unknown Urine Mucus Few /HPF 03/21/20 Unknown Urine Creatinine 81.9 mg/dL (0.1-20.0) H 03/21/20 20:41 Urine Sodium 105 mmol/L 03/21/20 20:41 Urine Total Protein 181 mg/dL (5-11.8) H 03/21/20 20:41 Hepatitis A IgM Ab Non-reactive (NonReactive) 03/22/20 16:22 Hep Bs Antigen Non-reactive (Negative) 03/22/20 16:22 Hep B Core IgM Ab Non-reactive (NonReactive) 03/22/20 16:22 Hepatitis C Antibody Non-reactive (NonReactive) 03/22/20 16:22 Awan/IV: Voiding Method Toilet IV Catheter Type [Right VAS Cath Subclavian] IV Catheter Type [Left Wrist] Peripheral IV Active Medications - Current Medications Current Medications: Generic Name Dose Route Start Last Admin Trade Name Freq PRN Reason Stop Dose Admin Acetaminophen 650 mg 03/21/20 19:14 Tylenol PO Q4H PRN Pain MILD(1-3)/Fever >100.5/ISAACS Amlodipine Besylate 10 mg 03/23/20 10:00 03/23/20 09:37 Amlodipine PO 10 mg DAILY AMISHA Administration Clonidine HCl 0.1 mg 03/22/20 18:30 03/23/20 09:36 Catapres PO 0.1 mg Q12HR AMISHA Administration Famotidine 20 mg 03/22/20 10:00 03/23/20 09:00 Pepcid PO 20 mg DAILY AMISHA Administration Heparin Sodium (Porcine) 5,000 unit 03/23/20 00:00 03/23/20 06:41 Heparin SUB-Q 5,000 unit Q8HR AMISHA Administration Hydralazine HCl 25 mg 03/22/20 14:00 03/23/20 06:39 Apresoline PO 25 mg Q8HR AMISHA Administration Hydralazine HCl 10 mg 03/22/20 18:19 Apresoline IV Q4HR PRN Blood Pressure Sodium Chloride 100 mls @ 999 mls/hr 03/23/20 10:22 Nacl 0.9% IV YARI PRN Hypotension Ondansetron HCl 4 mg 03/21/20 19:14 Zofran IV Q8H PRN Nausea And Vomiting Sodium Chloride 10 ml 03/21/20 22:00 03/23/20 09:37 Sodium Chloride Flush Syringe 10 Ml IV 10 ml BID AMISHA Administration Sodium Chloride 10 ml 03/21/20 19:14 Sodium Chloride Flush Syringe 10 Ml IV PRN PRN LINE FLUSH
[2020-03-24 02:45] LABS: Basophils % (Auto) 0.5 % (0.0-1.8); Eosinophils # (Auto) 0.4 K/mm3 (0.0-0.4); Eosinophils % (Auto) 5.5 % (0.0-4.3); Hematocrit 32.6 % (35.5-45.6); Hemoglobin 10.8 gm/dl (11.8-15.2); Lymphocytes # (Auto) 2.1 K/mm3 (1.2-5.4); Lymphocytes % (Auto) 28.1 % (13.4-35.0); Mean Corpuscular HGB Conc 33 % (32-34); Mean Corpuscular Volume 87 fl (84-94); Monocytes # (Auto) 0.5 K/mm3 (0.0-0.8); Monocytes % (Auto) 6.7 % (0.0-7.3); Platelet Count 243 K/mm3 (140-440); Red Blood Count 3.74 M/mm3 (3.65-5.03); Red Cell Distribution Width 14.3 % (13.2-15.2)
[2020-03-24 02:49] LABS: Albumin 3.7 g/dL (3.9-5); Calcium 8.9 mg/dL (8.4-10.2)
[2020-03-24 05:23] LABS: Iron 68 ug/dL (49-181); Total Iron Binding Capacity 260 mcg/dL (250-450)
[2020-03-24] MEDS: HEPARIN 5,000 UNIT/1 ML VIAL SUB-Q SCH ×3 (06:19→22:31)
[2020-03-24] MEDS: hydrALAZINE 25 MG TAB PO SCH ×3 (06:19→22:32)
[2020-03-24] MEDS: FAMOTIDINE 20 MG TAB PO SCH ×2 (08:46→13:57)
--- NOTE | 2020-03-24 09:29 | Progress Note ---
Assessment and Plan - Patient Problems (1) ESRD (end stage renal disease) Current Visit: Yes Status: Acute Plan to address problem: ESRD secondary to presumed hypertensive nephrosclerosis. pt presenting with subtle uremic symptoms and met acidosis. initiated HD on 03/22/20, cont MWF schedule. consult case management for outpatient HD placement. (2) Hypertensive chronic kidney disease with stage 5 chronic kidney disease or end stage renal disease Current Visit: Yes Status: Acute Plan to address problem: monitor BP on current meds (3) Metabolic acidosis Current Visit: No Status: Chronic Plan to address problem: corrected with HD (4) Anemia in chronic illness Current Visit: Yes Status: Acute Plan to address problem: check iron store/ferritin level. will monitor CBC and start MALLORY if Hb remains < 10 Subjective Date of service: 03/24/20 Principal diagnosis: ESRD Interval history: pt awake, alert, in no acute distress, denies fever, chills, SOB, CP, cramping, n/v/d Objective - Vital Signs Vital signs: Vital Signs - 12hr 03/23/20 03/24/20 21:45 04:21 Temperature 99.4 F 98.8 F Pulse Rate 75 76 Respiratory 20 20 Rate Blood Pressure 150/108 128/94 O2 Sat by Pulse 96 98 Oximetry - General Appearance General appearance: well-developed, well-nourished, appears stated age EENT: ATNC, PERRL, mucous membranes moist Neck: no JVD Respiratory: Present: Clear to Ascultation Cardiology: regular, S1S2 Gastrointestinal: normoactive bowel sounds Integumentary: no rash, other (no edema ) Neurologic: no focal deficit, alert and oriented x3, strength 5/5, CN 3-12 intact Psychiatric: mood/affect appropriate, cooperative - Lab 03/24/20 00:42 03/24/20 00:42 Most recent lab results Calcium 8.9 mg/dL (8.4-10.2) 03/24/20 00:42 Urine Creatinine 81.9 mg/dL (0.1-20.0) H 03/21/20 20:41 Urine Sodium 105 mmol/L 03/21/20 20:41 Urine Total Protein 181 mg/dL (5-11.8) H 03/21/20 20:41 Medications & Allergies - Medications Allergies/Adverse Reactions: Allergies No Known Allergies Allergy (Verified 03/21/20 13:46) Home Medications: Home Medications Medication Instructions Recorded Confirmed Last Taken Type Valsartan/Hydrochlorothiazide 1 tab PO QDAY #30 tablet 06/27/17 03/21/20 Unknown Rx [Diovan Hct 160-25 mg] amLODIPine 10 mg PO QDAY #30 tablet 06/27/17 03/21/20 03/21/20 Rx carvediloL [Coreg] 25 mg PO Q12HR #60 tablet 06/27/17 03/21/20 03/21/20 Rx Active Medications: Generic Name Dose Route Start Last Admin Trade Name Freq PRN Reason Stop Dose Admin Acetaminophen 650 mg 03/21/20 19:14 Tylenol PO Q4H PRN Pain MILD(1-3)/Fever >100.5/ISAACS Amlodipine Besylate 10 mg 03/23/20 10:00 03/23/20 09:37 Amlodipine PO 10 mg DAILY AMISHA Administration Clonidine HCl 0.1 mg 03/22/20 18:30 03/23/20 22:09 Catapres PO 0.1 mg Q12HR AMISHA Administration Famotidine 20 mg 03/22/20 10:00 03/24/20 08:46 Pepcid PO 20 mg DAILY AMISHA Administration Heparin Sodium (Porcine) 5,000 unit 03/23/20 00:00 03/24/20 06:19 Heparin SUB-Q 5,000 unit Q8HR AMISHA Administration Hydralazine HCl 25 mg 03/22/20 14:00 03/24/20 06:19 Apresoline PO 25 mg Q8HR AMISHA Administration Hydralazine HCl 10 mg 03/22/20 18:19 Apresoline IV Q4HR PRN Blood Pressure Sodium Chloride 100 mls @ 999 mls/hr 03/23/20 10:22 Nacl 0.9% IV YARI PRN Hypotension Ondansetron HCl 4 mg 03/21/20 19:14 Zofran IV Q8H PRN Nausea And Vomiting Sodium Chloride 10 ml 03/21/20 22:00 03/23/20 22:10 Sodium Chloride Flush Syringe 10 Ml IV 10 ml BID AMISHA Administration Sodium Chloride 10 ml 03/21/20 19:14 Sodium Chloride Flush Syringe 10 Ml IV PRN PRN LINE FLUSH
--- NOTE | 2020-03-24 09:42 | Discharge Summary ---
Providers - Providers Date of Admission: 03/21/20 18:12 Date of discharge: 03/24/20 Attending physician: SOHAM MASCORRO 03/21/20 17:52 Consult to Physician [CONS] Stat Comment: Consulting Provider: PIERCE MAR Physician Instructions: Reason For Exam: renal failure 03/22/20 08:07 Consult to Interventional Radiology [CONS] Urgent Consulting Provider: LUZ MARINA JONES Reason For Exam: permcath placement for initiation of HD Notified:: Dr Cagle 03/24/20 07:11 Consult to Case Management [CONS] Urgent Services Needed at Discharge: Other Notified:: Case management Primary care physician: JANNETTE MARTINEZ Hospitalization Condition: Fair Hospital course: 40-year-old -[place] male with history of hypertension, kidney disease who has not seen his primary care physician in more than a year but apparently was getting refills every month and states that he has been compliant with medication. He went to see his primary care physician 2 days ago as his was insisting him to go, had blood work drawn, and then he was called this morning to go to the ED. patient is alert and oriented and he offers no specific complaints whatsoever. Lab results reviewed patient is in end-stage renal disease creatinine 9.9. Patient takes amlodipine and valsartan for blood pressure. He also takes ibuprofen 4 tablets every day for arthritis of the right hand. 03/22. Patient seen and examined at bedside this morning. Nephrology has been consulted. Patient will have a permacath placed for hemodialysis. 03/23. Patient had hemodialysis yesterday. Nephrology currently following. He denies any complaint this morning. Blood pressure is elevated and his blood pressure medications have been adjusted. 03/24. He will be discharged home today to continue HD. Disposition: DC-01 TO HOME OR SELFCARE - Discharge Diagnoses (1) ESRD (end stage renal disease) Status: Acute (2) Hypertension Status: Acute (3) DVT prophylaxis Status: Acute (4) Advance care planning Status: Acute Core Measure Documentation - Palliative Care Palliative Care/ Comfort Measures: Not Applicable - Core Measures Any of the following diagnoses?: none Exam - Constitutional Vitals: Temp Pulse Resp BP Pulse Ox 98.8 F 76 20 128/94 98 03/24/20 04:21 03/24/20 04:21 03/24/20 04:21 03/24/20 04:21 03/24/20 04:21 General appearance: Present: no acute distress, well-nourished - EENT Eyes: Present: PERRL ENT: hearing intact, clear oral mucosa - Neck Neck: Present: supple, normal ROM - Respiratory Respiratory effort: normal Respiratory: bilateral: CTA - Cardiovascular Heart Sounds: Present: S1 & S2. Absent: rub, click - Extremities Extremities: pulses symmetrical, No edema Peripheral Pulses: within normal limits - Abdominal General gastrointestinal: Present: soft, non-tender, non-distended, normal bowel sounds Male genitourinary: Present: normal - Integumentary Integumentary: Present: clear, warm, dry - Musculoskeletal Musculoskeletal: gait normal, strength equal bilaterally - Psychiatric Psychiatric: appropriate mood/affect, intact judgment & insight - Neurologic Neurologic: CNII-XII intact, moves all extremities Plan Diet: low salt, renal Additional Instructions: Continue medications as prescribed. Continue hemodialysis Follow up with: JANNETTE MARTINEZ MD [Primary Care Provider] - 2-3 Days Prescriptions: amLODIPine 10 mg PO QDAY #30 tablet hydrALAZINE [Apresoline TAB] 50 mg PO Q8HR #180 tab carvediloL [Coreg] 25 mg PO Q12HR #60 tablet
[2020-03-24] MEDS: amLODIPine 10 MG TAB PO SCH (14:01)
[2020-03-24] MEDS: cloNIDine 0.1 MG TAB PO SCH ×2 (14:04→22:32)
--- NOTE | 2020-03-24 19:07 | XRay Report ---
CHEST 1 VIEW INDICATION: Dialysis Chair set up COMPARISON: 06/25/2017 FINDINGS: SUPPORT DEVICES: Hemodialysis catheters tip in the superior vena cava HEART / MEDIASTINUM: No significant abnormality. LUNGS / PLEURA: No significant pulmonary or pleural abnormality. No pneumothorax. ADDITIONAL FINDINGS: IMPRESSION: 1. No acute cardiopulmonary disease Signer Name: Fer Moncada MD Signed: 03/24/2020 7:03 PM Workstation Name: [id number]
[2020-03-25] MEDS: hydrALAZINE 25 MG TAB PO SCH ×2 (05:40→13:24)
[2020-03-25] MEDS: HEPARIN 5,000 UNIT/1 ML VIAL SUB-Q SCH ×2 (05:41→13:24)
[2020-03-25 08:24] LABS: Basophils % (Auto) 0.6 % (0.0-1.8); Eosinophils # (Auto) 0.5 K/mm3 (0.0-0.4); Eosinophils % (Auto) 6.5 % (0.0-4.3); Hematocrit 32.6 % (35.5-45.6); Hemoglobin 11.1 gm/dl (11.8-15.2); Lymphocytes # (Auto) 2.1 K/mm3 (1.2-5.4); Lymphocytes % (Auto) 25.8 % (13.4-35.0); Mean Corpuscular HGB Conc 34 % (32-34); Mean Corpuscular Volume 86 fl (84-94); Monocytes # (Auto) 0.7 K/mm3 (0.0-0.8); Monocytes % (Auto) 8.9 % (0.0-7.3); Platelet Count 251 K/mm3 (140-440); Red Blood Count 3.77 M/mm3 (3.65-5.03); Red Cell Distribution Width 14.1 % (13.2-15.2)
[2020-03-25 08:44] LABS: Albumin 3.9 g/dL (3.9-5); Calcium 9.4 mg/dL (8.4-10.2)
[2020-03-25] MEDS: amLODIPine 10 MG TAB PO SCH (09:24)
[2020-03-25] MEDS: cloNIDine 0.1 MG TAB PO SCH (09:24)
[2020-03-25] MEDS: FAMOTIDINE 20 MG TAB PO SCH (09:25)
--- NOTE | 2020-03-25 15:16 | Event Note ---
Date: 03/25/20
--- NOTE | 2020-03-25 15:32 | Progress Note ---
Assessment and Plan - Patient Problems (1) ESRD (end stage renal disease) Current Visit: Yes Status: Acute Plan to address problem: patient started on hemodialysis as inpatient. He is tolerating hemodialysis well. Last hemodialysis treatment yesterday. No acute issues during hemodialysis treatments. Pending placement at outpatient dialysis facility at this time. Once placement is ready he is stable to be discharged from renal standpoint. (2) Hypertensive chronic kidney disease with stage 5 chronic kidney disease or end stage renal disease Current Visit: Yes Status: Chronic Plan to address problem: monitor with current regimen. We will also try to optimize volume with hemodialysis treatments to further help with his blood pressure control. (3) Metabolic acidosis Current Visit: No Status: Chronic Plan to address problem: we will correct with hemodialysis. (4) Anemia in chronic illness Current Visit: Yes Status: Acute Plan to address problem: we will monitor and correct with MALLORY therapy as outpatient with his hemodialysis treatments. Subjective Date of service: 03/25/20 Principal diagnosis: ESRD Interval history: No acute issues from renal standpoint. Pending placement at outpatient dialysis unit. Objective - Vital Signs Vital signs: Vital Signs - 12hr 03/25/20 03/25/20 03/25/20 05:02 05:40 09:24 Temperature 98.5 F Pulse Rate 79 79 Respiratory 18 Rate Blood Pressure 124/79 124/79 122/96 O2 Sat by Pulse 97 Oximetry 03/25/20 03/25/20 03/25/20 09:26 11:54 13:24 Temperature 98.3 F Pulse Rate 82 Respiratory 20 Rate Blood Pressure 122/96 116/86 118/86 O2 Sat by Pulse 97 Oximetry - General Appearance General appearance: well-developed, well-nourished, appears stated age EENT: ATNC Neck: no JVD Respiratory: Present: Clear to Ascultation, Normal Exam Cardiology: regular Gastrointestinal: normal, normoactive bowel sounds Integumentary: no rash Neurologic: no focal deficit Musculoskeletal: deferred Psychiatric: mood/affect appropriate, cooperative - Lab 03/25/20 07:39 03/25/20 07:39 Most recent lab results Calcium 9.4 mg/dL (8.4-10.2) 03/25/20 07:39 Urine Creatinine 81.9 mg/dL (0.1-20.0) H 03/21/20 20:41 Urine Sodium 105 mmol/L 03/21/20 20:41 Urine Total Protein 181 mg/dL (5-11.8) H 03/21/20 20:41 - Allied health notes Allied health notes reviewed: nursing Medications & Allergies - Medications Allergies/Adverse Reactions: Allergies No Known Allergies Allergy (Verified 03/21/20 13:46) Home Medications: Home Medications Medication Instructions Recorded Confirmed Last Taken Type amLODIPine 10 mg PO QDAY #30 tablet 03/24/20 Unknown Rx carvediloL [Coreg] 25 mg PO Q12HR #60 tablet 03/24/20 Unknown Rx hydrALAZINE [Apresoline TAB] 50 mg PO Q8HR #180 tab 03/24/20 Unknown Rx Active Medications: Generic Name Dose Route Start Last Admin Trade Name Freq PRN Reason Stop Dose Admin Acetaminophen 650 mg 03/21/20 19:14 Tylenol PO Q4H PRN Pain MILD(1-3)/Fever >100.5/ISAACS Amlodipine Besylate 10 mg 03/23/20 10:00 03/25/20 09:24 Amlodipine PO 10 mg DAILY AMISHA Administration Clonidine HCl 0.1 mg 03/22/20 18:30 03/25/20 09:24 Catapres PO 0.1 mg Q12HR AMISHA Administration Famotidine 20 mg 03/22/20 10:00 03/25/20 09:25 Pepcid PO 20 mg DAILY AMISHA Administration Heparin Sodium (Porcine) 5,000 unit 03/23/20 00:00 03/25/20 13:24 Heparin SUB-Q 5,000 unit Q8HR AMISHA Administration Hydralazine HCl 25 mg 03/22/20 14:00 03/25/20 13:24 Apresoline PO 25 mg Q8HR AMISHA Administration Hydralazine HCl 10 mg 03/22/20 18:19 Apresoline IV Q4HR PRN Blood Pressure Sodium Chloride 100 mls @ 999 mls/hr 03/23/20 10:22 Nacl 0.9% IV YARI PRN Hypotension Ondansetron HCl 4 mg 03/21/20 19:14 Zofran IV Q8H PRN Nausea And Vomiting Sodium Chloride 10 ml 03/21/20 22:00 03/25/20 09:25 Sodium Chloride Flush Syringe 10 Ml IV 10 ml BID AMISHA Administration Sodium Chloride 10 ml 03/21/20 19:14 Sodium Chloride Flush Syringe 10 Ml IV PRN PRN LINE FLUSH
[2020-03-25 16:59] VITALS: BP 142/71
== END 2020-03-25 18:25 | disposition home or self-care (01) | DRG 673 ==
LOC: ED 13:42 → OBSVTOIN 18:12 → 3A 18:12
PROVIDERS: ADMIT Internal Medicine; ATTEND Internal Medicine
PROC: 0JHD3XZ Insertion of Tunneled Vascular Access Device into Right Upper Arm Subcutaneous Tissue and Fascia, Percutaneous Approach (ICD-10-PCS; principal; 2020-03-22)
PROC: 02HV33Z Insertion of Infusion Device into Superior Vena Cava, Percutaneous Approach (ICD-10-PCS; 2020-03-22)
PROC: B5181ZA Fluoroscopy of Superior Vena Cava using Low Osmolar Contrast, Guidance (ICD-10-PCS; 2020-03-22)
PROC: B548ZZA Ultrasonography of Superior Vena Cava, Guidance (ICD-10-PCS; 2020-03-22)
PROC: 5A1D70Z Performance of Urinary Filtration, Intermittent, Less than 6 Hours Per Day (ICD-10-PCS; 2020-03-22)
PROC: 5A1D70Z Performance of Urinary Filtration, Intermittent, Less than 6 Hours Per Day (ICD-10-PCS; 2020-03-23)
DX: I12.0 Hypertensive chronic kidney disease with stage 5 chronic kidney disease or end stage renal disease (principal); N18.6 End stage renal disease; E87.2 Acidosis; N17.9 Acute kidney failure, unspecified; M54.5 Low back pain; D64.9 Anemia, unspecified; Z82.49 Family history of ischemic heart disease and other diseases of the circulatory system; Z71.89 Other specified counseling; M19.041 Primary osteoarthritis, right hand; Z20.828 Contact with and (suspected) exposure to other viral communicable diseases
CPT/HCPCS: 36415; 36558; 71045; 76937; 77001; 80048; 80053; 80074; 81001; 82550; 82570; 82728; 83550; 84156; 84300; 85025; 99406; G0378; C1750; J1644; J2250; J3010; J7030; U0003-CS

== ENCOUNTER 2020-04-22 06:17 | Day surgery (SDC) | payer BC ==
[~2020-04-22 06:17] MED LIST: HYDROGEN PEROXIDE 118 ML SOLUTION ONE; MIDAZOLAM 2 MG/2 ML INJ IV NR; SODIUM CHLORIDE 0.9% 1000 ML 1,000 ML IV SCH; ceFAZolin/Water 2 GM/20 ML 2 GM/20 ML SYRINGE IV NR; fentaNYL 100 MCG/2 ML INJ IV PRN
[2020-04-22] MEDS ORDERED: BACTERIOSTATIC SODIUM CHLORIDE 0.9% 30 ML VIAL INFILTRATI ONE (06:46)
[2020-04-22 07:23] LABS: Hematocrit 34.4 % (35.5-45.6); Hemoglobin 11.3 gm/dl (11.8-15.2); Mean Corpuscular HGB Conc 33 % (32-34); Mean Corpuscular Volume 90 fl (84-94); Platelet Count 213 K/mm3 (140-440); Red Blood Count 3.84 M/mm3 (3.65-5.03); Red Cell Distribution Width 16.3 % (13.2-15.2)
[2020-04-22] MEDS ORDERED: carvediloL 25 MG TAB PO NR (07:35)
[2020-04-22 07:38] LABS: Calcium 8.9 mg/dL (8.4-10.2)
[2020-04-22] MEDS ORDERED: HEPARIN 10,000 UNITS/10 ML VIAL ONE (07:38)
[2020-04-22] MEDS ORDERED: SODIUM CHLORIDE 0.9% 500 ML 500 ML ONE (07:39)
--- NOTE | 2020-04-22 07:40 | Anesthesia Day of Surgery ---
Anesthesia Day of Surgery - Day of Surgery Patient Examined: Yes Patient H&P Reviewed: Yes Patient is NPO: Yes Beta Blockers: Yes (home dose carvedilol in preop)
--- NOTE | 2020-04-22 07:40 | Anesthesia Consultation ---
Anesthesia Consult and Med Hx Date of service: 04/22/20 - Airway Anesthetic Teeth Evaluation: Good (missing lower left molar) ROM Head & Neck: Adequate Mental/Hyoid Distance: Adequate Mallampati Class: Class III Intubation Access Assessment: Possibly Difficult - Pulmonary Exam CTA: Yes - Cardiac Exam Cardiac Exam: RRR - Pre-Operative Health Status ASA Pre-Surgery Classification: ASA3 Proposed Anesthetic Plan: MAC Nerve Block: supraclavicular - Pulmonary Hx Smoking: Yes (THC) Hx Respiratory Symptoms: No - Cardiovascular System Hx Hypertension: Yes (will give home dose carvedilol today) Hx Heart Attack/AMI: No (hx CHF; last TTE 2016 normal EF, >4 mets functional status) Hx Percutaneous Transluminal Coronary Angioplasty (PTCA): No Hx Cardia Arrhythmia: No - Central Nervous System CVA: No Hx Back Pain: Yes Hx Psychiatric Problems: No - Gastrointestinal Hx Gastroesophageal Reflux Disease: Yes (diet controlled) - Endocrine Hx End Stage Renal Disease: Yes (last HD 04/21/20) Hx Liver Disease: No Hx Insulin Dependent Diabetes: No Hx Non-Insulin Dependent Diabetes: No Hx Thyroid Disease: No - Hematic Hx Anemia: Yes - Other Systems Hx Substance Use: Yes (THC) Hx Obesity: No
[2020-04-22] MEDS ORDERED: ROPIVACAINE/PF (0.5%) 5 MG/1 ML 30 ML VIAL ONE (07:42)
[2020-04-22] MEDS ORDERED: LIDOCAINE MPF (2%) 20 MG/1 ML VIAL 5 ML ONE (08:25)
[2020-04-22] MEDS ORDERED: PHENYLEPHRINE/NS 1,000 MCG/10 ML SYRINGE (OR USE) IV ONE (08:25)
[2020-04-22] MEDS ORDERED: GLYCOPYRROLATE 0.4 MG/2 ML INJ ONE (08:25)
[2020-04-22] MEDS ORDERED: MIDAZOLAM 2 MG/2 ML INJ ONE (08:26)
[2020-04-22] MEDS ORDERED: fentaNYL 100 MCG/2 ML INJ ONE (08:26)
[2020-04-22] MEDS ORDERED: propofoL 200 MG/20 ML VIAL IV ONE (08:26)
[2020-04-22] MEDS ORDERED: KETAMINE/STERILE WATER 50 MG/ML SYRINGE ONE (08:26)
[2020-04-22] MEDS ORDERED: HEPARIN 10,000 UNITS/10 ML VIAL IR ONE (08:58)
[2020-04-22] MEDS ORDERED: SODIUM CHLORIDE 0.9% 500 ML IVPB IRRIGATION ONE (08:59)
[2020-04-22] MEDS ORDERED: SODIUM CHLORIDE 0.9% IRR 1,500 ML BOTTLE IR ONE (09:00)
--- NOTE | 2020-04-22 10:48 | Short Stay Summary ---
Short Stay Documentation Date of service: 04/22/20 Narrative H&P: See H&P - History H&P: obtained from office - Allergies and Medications Current Medications: Allergies No Known Allergies Allergy (Verified 03/21/20 13:46) Home Medications Medication Instructions Recorded Confirmed Last Taken Type amLODIPine 10 mg PO QDAY #30 tablet 03/24/20 04/22/20 04/21/20 17:00 Rx carvediloL [Coreg] 25 mg PO Q12HR #60 tablet 03/24/20 04/22/20 04/21/20 17:00 Rx hydrALAZINE [Apresoline TAB] 50 mg PO Q8HR #180 tab 03/24/20 04/22/20 04/21/20 17:00 Rx Valsartan 160 mg PO DAILY 04/16/20 04/22/20 04/21/20 17:00 History Vitamin D2 1 cap PO DAILY 04/16/20 04/22/20 04/21/20 17:00 History allopurinoL 100 mg PO DAILY 04/16/20 04/22/20 04/21/20 17:00 History Active Medications Fentanyl (Sublimaze) 100 mcg IV ONCE PRN PRN Reason: sedation for nerve block Stop: 04/22/20 23:59 Last Admin: 04/22/20 07:49 Dose: 50 mcg Documented by: Sodium Chloride (Nacl 0.9% 1000 Ml) 1,000 mls @ 42 mls/hr IV DIRECT AMISHA Stop: 04/22/20 23:59 Last Admin: 04/22/20 07:45 Dose: 42 mls/hr Documented by: Cefazolin Sodium (Ancef/Sterile Water 2 Gm/20 Ml) 2 gm in 20 mls @ 80 mls/hr IV PREOP NR; Protocol Stop: 04/22/20 23:59 Midazolam HCl (Versed) 2 mg IV PREOP NR Stop: 04/22/20 23:59 Last Admin: 04/22/20 07:48 Dose: 2 mg Documented by: - Brief post op/procedure progress note Date of procedure: 04/22/20 Pre-op diagnosis: End-Stage Renal Disease Post-op diagnosis: same Procedure: Creation of Left Myesha Arteriovenous Fistula Anesthesia: MAC, regional Surgeon: TONG JO Estimated blood loss: minimal Specimen disposition: to lab Condition: stable - Disposition Condition at discharge: Good Disposition: DC-01 TO HOME OR SELFCARE Short Stay Discharge Plan Activity: other (No heavy lifting with left arm for 2 weeks. Use stress ball with left hand as often as possible to help with maturation of left arm AV fistula.) Wound: open to air, keep clean and dry, other (Okay to wash the wound with soap and water but do not soak in water for 2 weeks.) Follow up with: TONG JO MD [Staff Physician] - 14 Days Prescriptions: HYDROcodone/APAP 7.5-325 [[place] 7.5/325] 1 each PO Q6HR PRN #30 tablet PRN Reason: Pain
--- NOTE | 2020-04-22 10:52 | Operative Report ---
Operative Report Operative Report: Date of procedure: 04/22/2020 Pre-operative diagnosis: End-Stage Renal Disease Post-operative diagnosis: End-Stage Renal Disease Procedure(s): Creation of Left Myesha Fistula Surgeon: Jose L Mata MD [employer] Attendant: None Anesthesia: Regional/MAC EBL: Minimal Counts: Correct Complications: None Condition: Stable Findings: Successful creation of left arm AV fistula with palpable thrill at the completion of the case. Specimen: None Indication: The patient is a 40-year-old male with a history of end-stage renal disease who is currently on hemodialysis through a right internal jugular permacath. He is in need of long-term dialysis access and is a suitable candidate for creation of a left arm arteriovenous fistula. He was given the risk, benefits, and alternative procedures and consented to the procedure. Description of Procedure: Prior to being transported to the operating room the patient had a regional block performed in the preoperative area. The patient was then transported to the operating room and laid in supine position. After he was adequately sedated his left arm was prepped and draped in normal sterile fashion. Longitudinal incision was then created on the distal wrist centered over the cephalic vein and a second incision was created in longitudinal fashion over the radial artery. The radial artery was dissected out circumferentially and controlled with vessel loops. The cephalic vein was then dissected out circumferentially, ligating side branches and dividing them, and then a tunnel was created to transpose it over to the radial artery. A 2 Keila was then advanced through the cephalic vein proximally to ensure patency. The vein was then flushed with heparinized saline and control of the bulldog clamp. The radial artery vessel loops were put on tension occluding flow, and then an 11 blade and Santana scissors used to create an arteriotomy. An end-to-side anastomosis created between the cephalic vein and the radial artery using a single 6-0 Prolene in running fashion. Prior to completing the anastomosis I flushed the artery both retrograde and antegrade and advanced a 2 Keila into the proximal portion of the artery to break the spasm. I then completed the anastomosis and removed all clamps allowing flow into the fistula which had an adequate thrill. I then closed the wounds in 2 layers using a 3-0 Vicryl running fashion the deep dermal layer, 4-0 Monocryl in a running fashion the subcuticular layer, and Dermabond as a dressing. The patient tolerated the procedure well, all sponge, needle, and instrument counts were correct, the patient was taken to recovery in stable condition.
[2020-04-22 11:26] VITALS: BP 110/71
--- NOTE | 2020-04-22 12:09 | Post Anesthesia Evaluation ---
- Post Anesthesia Evaluation Patient Participated: Yes Airway Patent: Yes Stable Respiratory Function: Yes Nausea/Vomiting: No Temp > 96.8F: Yes Pain Manageable: Yes Adequeate Hydration: Yes Anesthesia Complications: No Other Comments: Good pain control with block. Sling provided.
== END 2020-04-22 11:54 | disposition home or self-care (01) ==
LOC: OR 06:17
PROVIDERS: ATTEND Surgery Vascular Surgery
DX: I13.2 Hypertensive heart and chronic kidney disease with heart failure and with stage 5 chronic kidney disease, or end stage renal disease (principal); N18.6 End stage renal disease; I50.21 Acute systolic (congestive) heart failure; F17.210 Nicotine dependence, cigarettes, uncomplicated; G44.209 Tension-type headache, unspecified, not intractable; D64.9 Anemia, unspecified; K21.9 Gastro-esophageal reflux disease without esophagitis; M19.90 Unspecified osteoarthritis, unspecified site; Z98.890 Other specified postprocedural states; Z79.899 Other long term (current) drug therapy
CPT/HCPCS: 36415; 36821; 80048; 85027; C1757; J0690; J1644; J2250; J2370; J2704; J2795; J3010; J3490; J7030; J7040